=== PATIENT | male | born 1985 | race Caucasian/White ===

== ENCOUNTER 2016-11-25 10:52 | Emergency (ER) | payer OTHER ==
[2016-11-25] MEDS ORDERED: MORPHINE SULFATE 4 MG/ML SYRINGE IV STA (11:39)
[2016-11-25] MEDS ORDERED: SODIUM CHLORIDE 0.9% 1,000 ML IV STA ×2 (11:39)
[2016-11-25] MEDS ORDERED: RX INFO: IV CONTRAST WAS GIVEN 1 EACH MISC MISCELLANE PRN (11:39)
--- NOTE | 2016-11-25 11:55 | ED ---
General Adult HPI - General Chief complaint: Urogenital Stated complaint: hernia Time Seen by Provider: 11/25/16 11:17 Source: patient, RN notes reviewed, old records reviewed Mode of arrival: wheelchair Limitations: no limitations - History of Present Illness Initial comments: This is a 31-year-old male the ER for evaluation. This patient presents for evaluation of possible hernia. Patient is obese with history of umbilical hernia. Patient has no other medical history. Symptoms started 2 days ago progressively worsening, they previously left-sided inguinal area radiating to groin. Patient has had a bowel movement yesterday with no difficulty no straining. No nausea vomiting and no significant abdominal pain. Patient denies any other complaints to fevers, no cough or congestion, no recent illness of diarrhea. - Related Data Home Medications Medication Instructions Recorded Confirmed No Known Home Medications [No 11/25/16 11/25/16 Known Home Medications] Allergies Allergy/AdvReac Type Severity Reaction Status Date / Time Penicillins Allergy Unknown Verified 11/25/16 11:13 Review of Systems ROS Statement: Those systems with pertinent positive or pertinent negative responses have been documented in the HPI. ROS Other: All systems not noted in ROS Statement are negative. Past Medical History Past Medical History: Hypertension History of Any Multi-Drug Resistant Organisms: None Reported Past Surgical History: Hernia Repair, Tonsillectomy Past Psychological History: No Psychological Hx Reported Smoking Status: Never smoker Past Alcohol Use History: None Reported Past Drug Use History: Marijuana General Exam Limitations: no limitations General appearance: alert, in no apparent distress, obese Head exam: Present: atraumatic, normocephalic, normal inspection Eye exam: Present: normal appearance, PERRL, EOMI. Absent: scleral icterus, conjunctival injection, periorbital swelling ENT exam: Present: normal exam, mucous membranes moist Neck exam: Present: normal inspection. Absent: tenderness, meningismus, lymphadenopathy Respiratory exam: Present: normal lung sounds bilaterally. Absent: respiratory distress, wheezes, rales, rhonchi, stridor Cardiovascular Exam: Present: regular rate, normal rhythm, normal heart sounds. Absent: systolic murmur, diastolic murmur, rubs, gallop, clicks GI/Abdominal exam: Present: soft, normal bowel sounds. Absent: distended, tenderness, guarding, rebound, rigid Extremities exam: Present: normal inspection, full ROM, normal capillary refill. Absent: tenderness, pedal edema, joint swelling, calf tenderness Back exam: Present: normal inspection Neurological exam: Present: alert, oriented X3, CN II-XII intact Psychiatric exam: Present: normal affect, normal mood Skin exam: Present: warm, dry, intact, normal color. Absent: rash Course Vital Signs 11/25/16 11:11 Temperature 97.8 F Pulse Rate 92 Respiratory 20 Rate Blood Pressure 147/82 O2 Sat by Pulse 98 Oximetry - Reevaluation(s) Reevaluation #1: 11/25/16 13:19 Is able to tolerate oral intake at this time, we'll prescribe antibiotics 3 medication and antiemetics Medical Decision Making - Medical Decision Making 28 female the ER with uncommon. Acute diverticulitis, patient will be given follow-up with Gen. surgery GI, dietary changes a modification, pain control antibiotics at this time - Lab Data Result diagrams: 11/25/16 11:45 11/25/16 11:45 Lab Results 11/25/16 11/25/16 11/25/16 Range/Units 11:45 11:45 11:45 WBC 8.6 (3.8-10.6) k/uL RBC 4.77 (4.30-5.90) m/uL Hgb 13.9 (13.0-17.5) gm/dL Hct 42.8 (39.0-53.0) % MCV 89.7 (80.0-100.0) fL MCH 29.2 (25.0-35.0) pg MCHC 32.5 (31.0-37.0) g/dL RDW 14.1 (11.5-15.5) % Plt Count 255 (150-450) k/uL Neutrophils % 60 % Lymphocytes % 32 % Monocytes % 4 % Eosinophils % 2 % Basophils % 0 % Neutrophils # 5.2 (1.3-7.7) k/uL Lymphocytes # 2.7 (1.0-4.8) k/uL Monocytes # 0.4 (0-1.0) k/uL Eosinophils # 0.2 (0-0.7) k/uL Basophils # 0.0 (0-0.2) k/uL Sodium 142 (137-145) mmol/L Potassium 4.5 (3.5-5.1) mmol/L Chloride 103 (98-107) mmol/L Carbon Dioxide 28 (22-30) mmol/L Anion Gap 11 mmol/L BUN 11 (9-20) mg/dL Creatinine 0.91 (0.66-1.25) mg/dL Est GFR (MDRD) Af Amer >60 (>60 ml/min/1.73 sqM) Est GFR (MDRD) Non-Af >60 (>60 ml/min/1.73 sqM) Glucose 120 H (74-99) mg/dL Calcium 9.4 (8.4-10.2) mg/dL Total Bilirubin 0.6 (0.2-1.3) mg/dL AST 35 (17-59) U/L ALT 39 (21-72) U/L Alkaline Phosphatase 72 (38-126) U/L Total Protein 8.2 (6.3-8.2) g/dL Albumin 4.3 (3.5-5.0) g/dL Amylase 52 (30-110) U/L Lipase 70 (23-300) U/L Urine Color Yellow Urine Appearance Clear (Clear) Urine pH 5.0 (5.0-8.0) Ur Specific [place] 1.015 (1.001-1.035) Urine Protein Negative (Negative) Urine Glucose (UA) Negative (Negative) Urine Ketones Negative (Negative) Urine Blood Negative (Negative) Urine Nitrate Negative (Negative) Urine Bilirubin Negative (Negative) Urine Urobilinogen <2.0 (<2.0) mg/dL Ur Leukocyte Esterase Negative (Negative) - Radiology Data Radiology results: report reviewed (CT abdomen and pelvis positive for diverticulitis), image reviewed Disposition Clinical Impression: Acute diverticulitis Disposition: HOME SELF-CARE Condition: Good Instructions: Diverticulitis (ED) Referrals: Kasey Coughlin MD [Primary Care Provider] - 1-2 days
[2016-11-25 12:05] LABS: Appearance,Urine Clear (Clear); Bilirubin,Urine Negative (Negative); Glucose,Urine (UA) Negative (Negative); Ketones,Urine Negative (Negative); Leukocyte Esterase,Urine Negative (Negative); Nitrite,Urine Negative (Negative); Protein,Urine Negative (Negative); Specific Gravity,Urine 1.015 (1.001-1.035); UA Billing (MACRO vs. MICRO) CHEM; Urobilinogen,Urine <2.0 mg/dL (<2.0)
[2016-11-25 12:07] LABS: Basophils % (A) 0 %; CH 29.8; CHCM 33.4; Eosinophils # (A) 0.2 k/uL (0-0.7); Eosinophils % (A) 2 %; HCT 42.8 % (39.0-53.0); HDW 2.78; HGB 13.9 gm/dL (13.0-17.5); Luc # (Auto) 0.13; Luc % (Auto) 2; Lymphocytes # (A) 2.7 k/uL (1.0-4.8); Lymphocytes % (A) 32 %; MCH 29.2 pg (25.0-35.0); MCHC 32.5 g/dL (31.0-37.0); MCV 89.7 fL (80.0-100.0); Mean Platelet Volume 7.2; Monocytes # (A) 0.4 k/uL (0-1.0); Monocytes % (A) 4 %; Neutrophils # (A) 5.2 k/uL (1.3-7.7); Neutrophils % (A) 60 %; RBC 4.77 m/uL (4.30-5.90); RDW 14.1 % (11.5-15.5); WBC 8.6 k/uL (3.8-10.6); WBC (Perox) 8.69
[2016-11-25 12:13] LABS: ALT 39 U/L (21-72); AST 35 U/L (17-59); Alkaline Phosphatase 72 U/L (38-126); Amylase 52 U/L (30-110); Anion Gap 11 mmol/L; Blood Urea Nitrogen 11 mg/dL (9-20); Calcium 9.4 mg/dL (8.4-10.2); Carbon Dioxide 28 mmol/L (22-30); Chloride 103 mmol/L (98-107); Glucose 120 mg/dL (74-99); Non-African American GFR(MDRD) >60 (>60 ml/min/1.73 sqM); Potassium 4.5 mmol/L (3.5-5.1); Sodium 142 mmol/L (137-145); Total Bilirubin 0.6 mg/dL (0.2-1.3); Total Protein 8.2 g/dL (6.3-8.2)
--- NOTE | 2016-11-25 12:58 | CT ---
EXAMINATION TYPE: CT abdomen pelvis w con DATE OF EXAM: 11/25/2016 12:51 PM COMPARISON: 07/27/2013 HISTORY: Patient complains of LLQ pain with history of prior hernia repair. CT DLP: 2767 mGycm CONTRAST: CT scan of the abdomen and pelvis is performed without Oral Contrast and with IV Contrast, patient in jected with 100 mL of Omnipaque 300. FINDINGS: LUNG BASES-: No visible nodule. No infiltrate. LIVER/GB: No calcified gallstones. No space occupying hepatic lesion. Biliary tree is of normal ca liber. There is evidence of hepatic steatosis. PANCREAS: No inflammation. No distinct mass. SPLEEN: No splenic enlargement. No lesion seen. ADRENALS: No nodule. No thickening. KIDNEYS/BLADDER: No hydronephrosis. No nephrolithiasis. No disctinct renal mass. Urinary bladder g rossly unremarkable. BOWEL: There is mild inflammatory change adjacent to the sigmoid colon which may reflect mild diverti culitis. No evidence of perforation or abscess. Small bowel is of normal caliber. Normal appendix. Po stsurgical changes of the ventral hernia repair. No evidence for hernia recurrence. GENITAL ORGANS: No gross abnormality. LYMPH NODES: No greater than 1cm abdominal or pelvic lymph nodes are appreciated. AORTA: No significant abnormality. OSSEOUS STRUCTURES: No significant abnormality is seen. OTHER: No significant additional abnormality is seen. IMPRESSION: 1. Findings felt to reflect mild uncomplicated sigmoid diverticulitis.
[2016-11-25] MEDS ORDERED: metroNIDAZOLE 500 MG TAB PO STA (13:19)
[2016-11-25] MEDS ORDERED: CIPROFLOXACIN HCL 500 MG TAB PO STA (13:19)
[2016-11-25 13:39] VITALS: BP 149/75; PULSE 85; RESP 16; TEMP 97
== END 2016-11-25 13:39 | disposition home or self-care (01) ==
LOC: EC 10:52
DX: K57.92 Diverticulitis of intestine, part unspecified, without perforation or abscess without bleeding (principal); E66.9 Obesity, unspecified; Z88.0 Allergy status to penicillin; Z87.19 Personal history of other diseases of the digestive system; Z98.890 Other specified postprocedural states
CPT/HCPCS: 36415; 80053; 82150; 83690; 85025; 81003; 87086; 74177; 99284; 96374; 96361; J2270; Q9967

== ENCOUNTER 2017-03-11 11:13 | Emergency (ER) | payer OTHER ==
[2017-03-11 11:31] VITALS: RESP 18
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
[2017-03-11] MEDS: CYCLOBENZAPRINE 10 MG TAB PO STA (13:13)
[2017-03-11] MEDS: HYDROcodone/APAP 5-325MG 1 EACH TAB PO STA (13:13)
--- NOTE | 2017-03-11 13:52 | XR ---
EXAMINATION TYPE: XR lumbosacral spine min 4V DATE OF EXAM: 03/11/2017 CLINICAL HISTORY: Low back pain TECHNIQUE: Frontal, lateral, and oblique images of the lumbar spine are obtained. COMPARISON: Lumbar spine x-ray December 24, 2013. CT abdomen pelvis November 25, 2016. FINDINGS: There are 5 lumbar type vertebral bodies identified. The lumbar spine shows satisfactory alignment without evidence of acute fracture or dislocation. Vertebral body heights and disk space he ights are within normal limits. The oblique images appear within normal limits. Coils from ventral wall hernia repair surgery are redemonstrated in the overlying soft tissue. IMPRESSION: No acute fracture or dislocation is seen in the lumbar spine. No significant change from prior studies.
[2017-03-11 13:55] VITALS: BP 125/85; PULSE 73; TEMP 97.8
== END 2017-03-11 13:59 | disposition home or self-care (01) ==
LOC: EC 11:13
DX: S39.012A Strain of muscle, fascia and tendon of lower back, initial encounter (principal); Z88.0 Allergy status to penicillin; X50.9XXA Other and unspecified overexertion or strenuous movements or postures, initial encounter; Y93.64 Activity, baseball
CPT/HCPCS: 72110; 99283

== ENCOUNTER 2017-12-04 13:35 | Observation (INO) | payer OTHER ==
[2017-12-04] MEDS ORDERED: SODIUM CHLORIDE 0.9% 1,000 ML IV STA (14:41)
[2017-12-04] MEDS ORDERED: IBUPROFEN 600 MG TAB PO STA (14:42)
[2017-12-04] MEDS ORDERED: ACETAMINOPHEN TAB 500 MG TAB PO STA (14:42)
[2017-12-04] MEDS ORDERED: IPRATROPIUM-ALBUTEROL 3 ML NEB INHALATION STA (14:43)
--- NOTE | 2017-12-04 14:47 | ED ---
Chest Pain HPI <Ramses Paz - Last Filed: 12/04/17 17:41> - General Source: patient, RN notes reviewed, old records reviewed Mode of arrival: ambulatory Limitations: no limitations <Dulce Vickers - Last Filed: 12/04/17 18:40> - General Chief Complaint: Chest Pain Stated Complaint: CHEST PAIN Time Seen by Provider: 12/04/17 14:08 - History of Present Illness Initial Comments: This patient is a pleasant 32 old male with chief complaint of cough, fever or congestion and chest pain for approximately one day. Patient reports that he was feeling fine yesterday. He did not receive the influenza vaccine. He states that his family has all had the flu earlier this year. Patient reports that he's had a productive cough this morning. He states he feels like his heart is pounding out of his chest. He states that he has no significant cardiac history of himself, no history of lung diseases. He reports that he smokes marijuana occasionally. reports the chest pain has been intermittent, he reports is worse with ambulation. He states it occurred to be worse when he was at the store earlier today. (Dulce Vickers) - Related Data Home Medications Medication Instructions Recorded Confirmed No Known Home Medications [No 12/04/17 12/04/17 Known Home Medications] Allergies Allergy/AdvReac Type Severity Reaction Status Date / Time Penicillins Allergy Rash/Hives Verified 12/04/17 14:13 Review of Systems ROS Other: All systems not noted in ROS Statement are negative. <Ramses Paz - Last Filed: 12/04/17 17:41> ROS Other: All systems not noted in ROS Statement are negative. <Dulce Vickers - Last Filed: 12/04/17 18:40> ROS Statement: Those systems with pertinent positive or pertinent negative responses have been documented in the HPI. EKG Findings - EKG Comments: EKG Findings:: EKG shows sinus tachycardia otherwise a normal EKG noted. Ventricular rate of 110 bpm. AL interval 144 ms. QRS ration 110 ms. QT QTc is 350/473 ms. <Dulce Vickers - Last Filed: 12/04/17 18:40> Past Medical History Past Medical History: Hypertension History of Any Multi-Drug Resistant Organisms: None Reported Past Surgical History: Hernia Repair, Tonsillectomy Past Psychological History: No Psychological Hx Reported Smoking Status: Never smoker Past Alcohol Use History: None Reported Past Drug Use History: Marijuana <Dulce Vickers - Last Filed: 12/04/17 18:40> General Exam <Ramses Paz - Last Filed: 12/04/17 17:41> Limitations: no limitations General appearance: alert, in no apparent distress Head exam: Present: atraumatic, normocephalic, normal inspection Eye exam: Present: normal appearance, PERRL, EOMI. Absent: scleral icterus, conjunctival injection, periorbital swelling ENT exam: Present: normal exam, mucous membranes moist Neck exam: Present: normal inspection. Absent: tenderness, meningismus, lymphadenopathy Respiratory exam: Present: normal lung sounds bilaterally, wheezes (Patient is a minor cough and some minor wheezing noted at the right lower lung base.). Absent: respiratory distress, rales, rhonchi, stridor Cardiovascular Exam: Present: regular rate, normal rhythm, normal heart sounds. Absent: systolic murmur, diastolic murmur, rubs, gallop, clicks GI/Abdominal exam: Present: soft, normal bowel sounds. Absent: distended, tenderness, guarding, rebound, rigid Extremities exam: Present: normal inspection, full ROM, normal capillary refill. Absent: tenderness, pedal edema, joint swelling, calf tenderness Back exam: Present: normal inspection Neurological exam: Present: alert, oriented X3, CN II-XII intact Psychiatric exam: Present: normal affect, normal mood Skin exam: Present: warm, dry, intact, normal color. Absent: rash <Dulce Vickers - Last Filed: 12/04/17 18:40> - General Exam Comments Initial Comments: This is a 32-year-old male. No acute distress. (Dulce Vickers) Vital Signs 12/04/17 12/04/17 12/04/17 13:41 14:27 14:58 Temperature 99.0 F 98.7 F Pulse Rate 108 H 102 H 100 Respiratory 20 18 Rate Blood Pressure 145/88 160/77 O2 Sat by Pulse 98 98 Oximetry 12/04/17 12/04/17 12/04/17 15:12 15:56 16:44 Temperature Pulse Rate 100 95 88 Respiratory 18 18 Rate Blood Pressure 147/73 151/72 O2 Sat by Pulse 98 99 Oximetry Chest Pain MDM <Ramses Paz - Last Filed: 12/04/17 17:41> <Dulce Vickers - Last Filed: 12/04/17 18:40> - [facility] Medical decision making; 32-year-old male was coming emergency room visit short sharp episodes of chest pain. Around emergency room he was febrile. Pain was not reproducible noted radiate anywhere. No nausea no vomiting. No injuries. EKG found ventricular rate to be [address] elevation or ischemic changes appreciated. Patient does smoke, there is a very strong family history of heart disease in family members in their 30s. The patient's chest x-ray shows evidence of an enlarged heart but no failure. Influenza negative. Labs at this time within normal limits. Patient will be admitted for observation for chest pain. I explained to the family and patient at bedside answer all questions. I spoke with on-call hospitalist Dr. Perez. Patient be admitted to his service with cardiology consultation Dr. Paz (Ramses Paz) This patient 32-year-old male presents emergency Department treatment plans of intermittent chest pain. He did have a low-grade temperature when he first came in. Use heart rate was 110 and EKG. No nausea or vomiting. He did have some diaphoresis. Patient was given a breathing treatment, Motrin Tylenol and fluids. He reports he feels somewhat better. However he does report he has a family history of heart disease. At this time I'll put the patient in observation for chest pain, repeat troponins. I will put the patient on azithromycin and given the first dose the emergency department for the cough, or bronchitis possible walking pneumonia. Also repeat breathing treatments as well. Patient understands treatment plan. Agrees to admission. (Dulce Vickers) Disposition <Ramses Paz - Last Filed: 12/04/17 17:41> Time of Disposition: 18:18 <Dulce Vickers - Last Filed: 12/04/17 18:40> Clinical Impression: Chest pain, Cough Disposition: ADMITTED IP TO THIS HOSP Condition: Stable Instructions: Chest Pain (ED) Referrals: Kasey Coughlin MD [Primary Care Provider] - 1-2 days
[2017-12-04] MEDS: SODIUM CHLORIDE 0.9% 1,000 ML IV SCH (15:02)
[2017-12-04 15:12] LABS: Appearance,Urine Clear (Clear); Basophils % (A) 0 %; Bilirubin,Urine Negative (Negative); Blood,Urine Negative (Negative); Color,Urine Yellow; Eosinophils % (A) 1 %; Glucose,Urine (UA) Negative (Negative); HCT 41.7 % (39.0-53.0); HGB 14.9 gm/dL (13.0-17.5); Ketones,Urine Negative (Negative); Leukocyte Esterase,Urine Negative (Negative); Lymphocytes # (A) 0.9 k/uL (1.0-4.8); Lymphocytes % (A) 10 %; MCH 31.4 pg (25.0-35.0); MCHC 35.7 g/dL (31.0-37.0); MCV 87.8 fL (80.0-100.0); Mean Platelet Volume 7.8; Monocytes # (A) 0.3 k/uL (0-1.0); Monocytes % (A) 3 %; Neutrophils % (A) 85 %; Nitrite,Urine Negative (Negative); Platelet Count 212 k/uL (150-450); Protein,Urine Negative (Negative); RBC 4.76 m/uL (4.30-5.90); RDW 13.5 % (11.5-15.5); Specific Gravity,Urine 1.019 (1.001-1.035); WBC 8.3 k/uL (3.8-10.6)
[2017-12-04 15:23] LABS: ALT 21 U/L (21-72); AST 19 U/L (17-59); Albumin 4.3 g/dL (3.5-5.0); Alkaline Phosphatase 64 U/L (38-126); Anion Gap 12 mmol/L; Blood Urea Nitrogen 14 mg/dL (9-20); Calcium 9.6 mg/dL (8.4-10.2); Carbon Dioxide 25 mmol/L (22-30); Chloride 102 mmol/L (98-107); Glucose 96 mg/dL (74-99); Magnesium 1.8 mg/dL (1.6-2.3); Potassium 4.4 mmol/L (3.5-5.1); Sodium 139 mmol/L (137-145); Total Bilirubin 0.5 mg/dL (0.2-1.3); Total Protein 7.5 g/dL (6.3-8.2)
[2017-12-04 15:25] LABS: D-Dimer 0.49 mg/L FEU (<0.60); Partial Thromboplastin Time 24.7 sec (22.0-30.0); Prothrombin Time 10.1 sec (9.0-12.0)
[2017-12-04 15:30] LABS: Creatine Kinase 84 U/L (55-170)
--- NOTE | 2017-12-04 15:34 | XR ---
EXAMINATION TYPE: XR chest 2V DATE OF EXAM: 12/04/2017 COMPARISON: Chest x-ray November 07, 2014. HISTORY: Chest pain. TECHNIQUE: Frontal and lateral views of the chest are obtained. FINDINGS: There is no focal air space opacity, pleural effusion, or pneumothorax seen. The cardiac silhouette size is enlarged. The osseous structures are intact. IMPRESSION: Cardiomegaly without acute pulmonary process.
[2017-12-04 15:43] LABS: Creatine Kinase MB 0.4 ng/mL (0.0-2.4); Troponin I <0.012 ng/mL (0.000-0.034)
[2017-12-04] MEDS ORDERED: AZITHROMYCIN 500 MG TAB PO STA (18:19)
[2017-12-04] MEDS ORDERED: NITROGLYCERIN SL TABS 0.4 MG TAB SUBLINGUAL PRN (18:19)
[2017-12-04] MEDS ORDERED: ASPIRIN 81 MG PO STA (18:19)
[2017-12-04 22:18] LABS: Creatine Kinase 74 U/L (55-170)
[2017-12-04 22:28] LABS: Creatine Kinase MB 0.3 ng/mL (0.0-2.4); Troponin I <0.012 ng/mL (0.000-0.034)
[2017-12-05 04:09] LABS: Creatine Kinase 72 U/L (55-170)
[2017-12-05 04:24] LABS: Creatine Kinase MB 0.3 ng/mL (0.0-2.4); Troponin I <0.012 ng/mL (0.000-0.034)
[2017-12-05] MEDS: SODIUM CHLORIDE 0.9% 1,000 ML IV SCH (04:47)
[2017-12-05 08:19] LABS: Cholesterol 137 mg/dL (<200); HDL Cholesterol 24 mg/dL (40-60); LDL Cholesterol,Calculated 60 mg/dL (0-99); Triglycerides 266 mg/dL (<150)
[2017-12-05 08:52] VITALS: RESP 18
[2017-12-05] MEDS: IPRATROPIUM-ALBUTEROL 3 ML NEB INHALATION SCH ×5 (09:25→16:23)
[2017-12-05 12:20] VITALS: PULSE 79; TEMP 97.6
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
[2017-12-05] MEDS ORDERED: LOSARTAN 25 MG TAB PO SCH (12:30)
[2017-12-05 16:14] VITALS: BP 154/90
--- NOTE | 2017-12-05 17:41 | HP ---
HISTORY AND PHYSICAL DATE OF SERVICE: 12/05/17. CHIEF COMPLAINT: Chest pain. BRIEF HISTORY: This patient, a 32-year-old morbidly obese male patient with history of hypertension and sleep apnea. He uses marijuana daily, presents to ED with a complaint of chest pain which started yesterday morning in left precordial area without any radiation. The patient claims that he was sitting when the pain started. Initially the pain was sharp and would go away in 30 seconds on its own, but later it stayed for longer period of time. He had no nausea, vomiting or diaphoresis. Along with the chest pain he does give history of cough productive of yellow-green phlegm. According to patient, the pain was getting progressively worse so he decided to come to the ED. PAST MEDICAL HISTORY: The patient has past medical history that is significant for history of hypertension, history of sleep apnea. Patient uses CPAP at home. PAST SURGICAL HISTORY: 1. Significant for hernia repair. 2. Tonsillectomy. SOCIAL HISTORY: Patient has no history of smoking tobacco, but does use marijuana daily. No IV drug abuse or alcohol abuse. FAMILY HISTORY: Significant for CHF in mother. MEDICATIONS: The patient is not taking any medications on a regular basis. ALLERGIES: He is ALLERGIC to PENICILLIN. REVIEW OF SYSTEM: CONSTITUTIONAL: History of fever and chills. HEENT: No history of hearing or vision loss. RESPIRATORY: Some cough with sputum production. CARDIOVASCULAR: Chest pain as described above. ABDOMEN/GI: No nausea, vomiting, diarrhea. GENITOURINARY: No hematuria. No dysuria. MUSCULOSKELETAL/EXTREMITIES: No joint or muscle deformities. NEUROLOGICAL No dizziness or lightheadedness. No focal deficit. SKIN: No pigmentation or rashes. ENDOCRINE: No polyuria or polydipsia. The rest of 14-point review of system is unremarkable. PHYSICAL EXAMINATION: VITAL SIGNS: Temperature of 98.1, pulse 100, respiration 18, blood pressure 167/93, O2 saturation 97%. HEENT: Atraumatic, normocephalic. Pupils equal and reactive to light. Extraocular movements are intact. Buccal mucosa is fair. NECK: Supple. No goiter or lymphadenopathy. JVD is negative. No carotid bruit heard. LUNGS: Scattered coarse rhonchi with occasional wheezing. Fair air entry. Heart is regular rate and rhythm without any murmurs or gallop rhythm. ABDOMEN: Soft, nontender, nondistended. Bowel sounds positive. EXTREMITIES: No edema, clubbing or cyanosis. Pulses are palpable 2+. NEUROLOGICAL EXAMINATION: Patient is awake, alert, oriented x3. He has no gross motor or sensory deficit. Skin is warm and dry without any rashes or pigmentation. LAB: CBC: White blood count of 8.3, hemoglobin 14.9, hematocrit 41.7, platelet count of 212. Chemical profile: Sodium 139, potassium 4.4, chloride 102, bicarb 25, BUN 14, creatinine 0.8, glucose 96. CK of 0.04, troponin 0.012. EKG shows sinus at a sinus rhythm, no acute ST or T-wave changes. Chest x-ray was negative for any acute process. ASSESSMENT: 1. Chest pain rule out acute coronary syndrome. 2. Accelerated hypertension. 3. Severe acute tracheobronchitis. 4. Morbid obesity. 5. Marijuana use. PLAN: We plan to admit the patient to observation on telemetry. Monitor cardiac enzymes. Monitor the EKG. Consult Cardiology. Patient will be started on losartan orally. Plan is to monitor blood pressure closely. Counseling done on marijuana cessation and also counseling done for need to take oral antihypertensive agents. Further recommendations after patient is seen by Cardiology. MMODL / IJN: [id number] /
== END 2017-12-05 16:14 | disposition home or self-care (01) ==
LOC: EC 13:35 → 3OBS 18:37
PROVIDERS: ADMIT Internal Medicine; ATTEND Internal Medicine
DX: R07.89 Other chest pain (principal); J20.9 Acute bronchitis, unspecified; R00.0 Tachycardia, unspecified; I10 Essential (primary) hypertension; E66.01 Morbid (severe) obesity due to excess calories; Z68.41 Body mass index [BMI] 40.0-44.9, adult; R73.03 Prediabetes; F12.90 Cannabis use, unspecified, uncomplicated; G47.30 Sleep apnea, unspecified; Z99.89 Dependence on other enabling machines and devices; Z88.0 Allergy status to penicillin; Z82.49 Family history of ischemic heart disease and other diseases of the circulatory system
CPT/HCPCS: 96361 ×5; 96360 ×2; 99285 ×2; 36415; 94640 ×2; 93005; 85379; 83880; 80061; 80053; 82550 ×2; 82553 ×2; 83735; 84484 ×2; 85025; 85610; 85730; 81003; 87040; 87502; 71046; G0378 ×2

== ENCOUNTER 2018-09-16 09:33 | Emergency (ER) | payer OTHER ==
[2018-09-16 09:40] VITALS: BP 166/99; PULSE 88; RESP 18; TEMP 97.5
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
--- NOTE | 2018-09-16 10:13 | XR ---
EXAMINATION TYPE: XR ribs RT w pa chest xray DATE OF EXAM: 09/16/2018 COMPARISON: NONE HISTORY: Pain TECHNIQUE: Single view of the chest four views of the ribs are submitted. FINDINGS: The lungs are clear. No Evidence for pneumothorax. No evidence for focal contusion. Medi astinal structures are midline. Evaluation of the ribs fails to demonstrate evidence for displaced r ib fracture or secondary sign of rib fracture. IMPRESSION: Negative study
[2018-09-16] MEDS ORDERED: ACET/COD 300 MG/30 MG STARTER PACK 6 TAB BTL PO STA (10:25)
== END 2018-09-16 10:38 | disposition home or self-care (01) ==
LOC: EC 09:33
DX: S20.211A Contusion of right front wall of thorax, initial encounter (principal); Z88.0 Allergy status to penicillin; V89.2XXA Person injured in unspecified motor-vehicle accident, traffic, initial encounter; Y92.410 Unspecified street and highway as the place of occurrence of the external cause
CPT/HCPCS: 99284

== ENCOUNTER → 2018-10-04 | Outpatient (CLI) | payer OTHER ==
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
--- NOTE | 2018-10-04 15:08 | XR ---
Thoracic spine HISTORY: M54.5, M54.6, Z09, V 89.2XXA, trauma and pain 2 views of the thoracic spine on 3 images There is multilevel spondylosis present. Thoracic vertebral bodies show preserved height, alignment, and bone mineralization. Disc spaces are maintained. Thoracic lumbar junction not included on the lat eral view. IMPRESSION: No acute fracture or subluxation.
--- NOTE | 2018-10-04 15:09 | XR ---
Lumbar spine HISTORY: M54.5, M54.6, Z09, V 89.2XXA, trauma and pain Reviews of the lumbar spine correlated to prior exam 03/11/2017 There is no significant interval change. Lumbar vertebral bodies show preserved height, alignment, an d bone mineralization. Disc spaces are remarkable for height loss especially L4-5, L5-S1. Postop sullivan ges noted to the anterior abdominal wall. There is mild multilevel spondylosis. IMPRESSION: No fracture or subluxation. Mild degenerative disc disease. MRI may be of benefit.
== END ==
LOC: RADXRMAIN 14:18
PROVIDERS: ATTEND Family Medicine
DX: M51.36 Other intervertebral disc degeneration, lumbar region (principal); M54.6 Pain in thoracic spine
CPT/HCPCS: 72070; 72100

== ENCOUNTER 2018-10-09 04:35 | Emergency (ER) | payer OTHER ==
[2018-10-09 04:44] VITALS: RESP 18
[2018-10-09] MEDS ORDERED: HYDROcodone/APAP 7.5-325MG 1 EACH TAB PO ONE (05:00)
--- NOTE | 2018-10-09 05:24 | XR ---
EXAMINATION TYPE: XR Hip Complete LT DATE OF EXAM: 10/09/2018 COMPARISON: NONE HISTORY: Left hip pain TECHNIQUE: 2 views FINDINGS: I see no fracture nor dislocation. Hip joint space is normal. There is no sign of hip dyspl joseph. IMPRESSION: Normal left hip exam.
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
[2018-10-09] MEDS ORDERED: MORPHINE SULFATE 4 MG/ML SYRINGE IM STA (06:02)
[2018-10-09 06:35] VITALS: BP 140/83; PULSE 88; TEMP 97
== END 2018-10-09 06:35 | disposition home or self-care (01) ==
LOC: EC 04:35
DX: M25.552 Pain in left hip (principal); G47.30 Sleep apnea, unspecified; Z99.89 Dependence on other enabling machines and devices; Z88.0 Allergy status to penicillin
CPT/HCPCS: 73502; 99283; 96372; J2270

== ENCOUNTER → 2018-10-25 | Outpatient (CLI) | payer OTHER ==
--- NOTE | 2018-10-25 14:51 | NM ---
EXAMINATION TYPE: NM bone scan whole body DATE OF EXAM: 10/25/2018 COMPARISON: NONE HISTORY: Middle back pain Delayed whole-body scanning was performed following the injection of 23.8 mCi Tc 99m MDP. Images acq uired 3 hours post injection. FINDINGS: Faint uptake seen in the thoracic spine. Abnormal uptake involving the feet, knees and shoulders may be post arthritic. IMPRESSION: Faint uptake noted in the midthoracic spine likely degenerative. If symptoms persist correlate with M RI to assess for disc herniation.
== END | disposition home or self-care (01) ==
LOC: RADNMMAIN 10:41
PROVIDERS: ATTEND Family Medicine
DX: R07.81 Pleurodynia (principal)
CPT/HCPCS: 78306; A9503

== ENCOUNTER → 2018-10-28 | Outpatient (CLI) | payer OTHER ==
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
== END | disposition home or self-care (01) ==
LOC: RADMRIMAIN 11:34
PROVIDERS: ATTEND Family Medicine
DX: M51.24 Other intervertebral disc displacement, thoracic region (principal); M47.816 Spondylosis without myelopathy or radiculopathy, lumbar region
CPT/HCPCS: 72146; 72148

== ENCOUNTER 2019-07-31 15:34 | Emergency (ER) | payer OTHER ==
[2019-07-31 15:58] VITALS: BP 139/85; PULSE 93; RESP 18; TEMP 97.9
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
--- NOTE | 2019-07-31 16:22 | XR ---
EXAMINATION TYPE: XR shoulder complete LT DATE OF EXAM: 07/31/2019 COMPARISON: NONE HISTORY: 34-year-old male with left shoulder pain TECHNIQUE: 3 views FINDINGS: Moderate degenerative spurring at the AC joint. Some chronic bony fragmentation versus loose body sup eriorly and mild capsular hypertrophy. Subacromial space is preserved. No tendinous or bursal calcifi cations. No acute fracture, subluxation, or dislocation. 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 No acute osseous abnormality seen.
[2019-07-31] MEDS ORDERED: KETOROLAC 60 MG/2 ML VIAL IM STA (16:39)
[2019-07-31] MEDS ORDERED: CYCLOBENZAPRINE 10MG STARTER 3 TAB BTL PO STA (16:39)
== END 2019-07-31 16:59 | disposition home or self-care (01) ==
LOC: EC 15:34
DX: S46.912A Strain of unspecified muscle, fascia and tendon at shoulder and upper arm level, left arm, initial encounter (principal); I10 Essential (primary) hypertension; Z88.0 Allergy status to penicillin; X58.XXXA Exposure to other specified factors, initial encounter
CPT/HCPCS: 73030; 99284; 96372; J1885

== ENCOUNTER 2020-03-04 19:02 | Emergency (ER) | payer OTHER ==
[2020-03-04 19:16] VITALS: BP 162/90; PULSE 101; RESP 18; TEMP 98.3
[2020-03-04] MEDS ORDERED: KETOROLAC 30 MG/ML 1 ML VIAL IM STA (19:52)
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
== END 2020-03-04 20:30 | disposition home or self-care (01) ==
LOC: EC 19:02
DX: B35.3 Tinea pedis (principal); G47.30 Sleep apnea, unspecified; Z99.89 Dependence on other enabling machines and devices; Z88.0 Allergy status to penicillin
CPT/HCPCS: 99282; 96372; J1885

== ENCOUNTER 2020-03-11 11:21 | Emergency (ER) | payer OTHER ==
[2020-03-11 11:27] VITALS: PULSE 95; RESP 18; TEMP 97.7
[2020-03-11] MEDS ORDERED: amLODIPine 5 MG TAB PO STA (11:30)
[2020-03-11] MEDS ORDERED: diphenhydrAMINE 50 MG CAP PO STA (11:51)
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
[2020-03-11 12:13] VITALS: BP 162/87
== END 2020-03-11 12:13 | disposition home or self-care (01) ==
LOC: EC 11:21
DX: R21 Rash and other nonspecific skin eruption (principal); I10 Essential (primary) hypertension; G47.30 Sleep apnea, unspecified; Z88.0 Allergy status to penicillin; Z99.89 Dependence on other enabling machines and devices
CPT/HCPCS: 99282

== ENCOUNTER 2020-03-13 14:08 | Observation (INO) | payer OTHER ==
[2020-03-13] MEDS ORDERED: CYCLOBENZAPRINE 10 MG TAB PO PRN (15:25)
[2020-03-13] MEDS ORDERED: VANCOMYCIN IV PER PHARMACY 1 EACH MISC MISCELLANE PRN (15:42)
[2020-03-13 15:50] LABS: Basophils % (A) 0 %; Eosinophils # (A) 0.2 k/uL (0-0.7); Eosinophils % (A) 2 %; HCT 41.4 % (39.0-53.0); HGB 13.8 gm/dL (13.0-17.5); Lymphocytes # (A) 2.1 k/uL (1.0-4.8); Lymphocytes % (A) 22 %; MCH 31.4 pg (25.0-35.0); MCHC 33.3 g/dL (31.0-37.0); MCV 94.3 fL (80.0-100.0); Monocytes # (A) 0.2 k/uL (0-1.0); Monocytes % (A) 3 %; Neutrophils # (A) 6.8 k/uL (1.3-7.7); Neutrophils % (A) 72 %; Platelet Count 261 k/uL (150-450); RBC 4.39 m/uL (4.30-5.90); RDW 14.2 % (11.5-15.5); WBC 9.4 k/uL (3.8-10.6)
[2020-03-13 15:58] LABS: African American GFR (CKD) >90 (>60 ml/min/1.73 sqM); Anion Gap 10 mmol/L; Blood Urea Nitrogen 13 mg/dL (9-20); Calcium 9.7 mg/dL (8.4-10.2); Carbon Dioxide 25 mmol/L (22-30); Chloride 103 mmol/L (98-107); Glucose 138 mg/dL (74-99); Non-African American GFR(CKD) >90 (>60 ml/min/1.73 sqM); Potassium 4.1 mmol/L (3.5-5.1); Sodium 138 mmol/L (137-145)
[2020-03-13] MEDS ORDERED: VANCOMYCIN 2,250 MG in SODIUM CHLORIDE 0.9% 500 ML 500 ML IVPB ONE (16:00)
[2020-03-13] MEDS: SODIUM CHLORIDE 0.9% 1,000 ML IV SCH (16:33)
[2020-03-13] MEDS: amLODIPine 2.5 MG TAB PO SCH (16:34)
[2020-03-13 17:00] LABS: AST 25 U/L (17-59)
[2020-03-13 17:16] LABS: ALT 27 U/L (4-49)
[2020-03-13] MEDS: CLOTRIMAZOLE 1% CREAM 15 GM TUBE TOPICAL SCH (21:00)
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
--- NOTE | 2020-03-14 00:09 | CONS ---
CONSULTATION DATE OF SERVICE: 03/13/2020 REASON FOR CONSULTATION: Rash and cellulitis to his feet. HISTORY OF PRESENT ILLNESS: The patient is a 34-year-old male who has been admitted direct to hospital from his PCP with concern for a cellulitis to his foot and some swelling to bilateral hand. The patient mentioned that he started having rash on the left foot mostly lateral border in between the toes for which the patient has been evaluated in the outpatient setting in the Urgent Care as well as in the ER. The patient has been diagnosed with a possible fungal infection and has been treated with oral antifungals as well as local cream. However, the patient is not sure about the name. Subsequently the patient developing a rash on the palms of both hand. The patient denies having any rash in any other part of the body. Patient complaining of itching and some burning pain associated with the rash mostly in the foot area. The patient denies having any fever or any chills. The patient denies having any recent travel or tick bites and denies having any urethral drainage or genital ulcer, though the patient does have multiple sexual partners. The patient was evaluated in the ER on the 11 of March when the patient had been diagnosed with suspected scabies and the patient has been treated with Elimite lotion without any improvement and now has been admitted directly to the hospital by the PCP for further management. The patient has been started on clotrimazole cream and vancomycin. Infectious Disease was consulted for further management of antibiotic and local cream. REVIEW OF SYSTEMS: Positive points have been mentioned in HPI. Rest of systems is negative. PAST MEDICAL HISTORY: Past medical history is significant for hypertension, sleep apnea. PAST SURGICAL HISTORY: Hernia repair and tonsillectomy. SOCIAL HISTORY: No history of smoking or marijuana use. FAMILY HISTORY: Mother with history of congestive heart failure. ALLERGIES: Allergies to PENICILLIN with a rash. No history of anaphylaxis. MEDICATION: Medications include the patient is currently on [place], Norvasc, Lotrimin, Flexeril, and vancomycin. PHYSICAL EXAMINATION: Blood pressure 158/77 with a pulse of 94, temperature 98.1. He is 97% on room air. General description is a young male up in the bed in no distress. No tachypnea or accessory muscle of respiration use. HEENT: Examination shows no pallor or scleral icterus. Oral mucous membrane is dry. No pharyngeal erythema or thrush. NECK: Trachea central. No thyromegaly. LUNGS: Unlabored breathing, clear to auscultation anteriorly. No wheeze or crackle. HEART: S1, S2. Regular rate and rhythm. ABDOMEN: Soft, no tenderness. No guarding or rigidity. EXTREMITIES: Left foot lateral border did have a dry irritating rash with evidence of athlete's foot in between the toes. On the palms of his hand, the patient did have a maculopapular rash. No vesicles and no rash in any other part of the body. NEUROLOGICAL: Patient is awake, alert, oriented x3. Mood and affect normal. LABS: Hemoglobin 13.8, white count 9.4, BUN of 13, creatinine 1.0. Electrolytes have been normal. Liver enzymes are normal. DIAGNOSTIC IMPRESSION AND PLAN: 1. Patient with rash to the foot which is more of a cutaneous candidiasis type with no significant evidence of secondary cellulitis. 2. The patient with maculopapular rash on hands in this patient who did have promiscuous sexual behavior with concern for possible syphilis versus other diseases clinically no features of a cutaneous candidiasis. PLAN: 1. Will wait for the syphilis, HIV testing that has been ordered by the admitting physician. 2. Clotrimazole lotion to the rash on the left foot lateral border. 3. Continue with systemic vancomycin while waiting for the culture to finalize. 4. We will follow on clinical condition and recent investigation to further adjust medication if needed. Thank you for this consultation. Will follow this patient along with you. MMODL / IJN: [id number] /
[2020-03-14 04:02] LABS: Hemoglobin A1C 5.8 % (4.0-6.0)
[2020-03-14] MEDS: SODIUM CHLORIDE 0.9% 1,000 ML IV SCH (04:31)
[2020-03-14] MEDS: VANCOMYCIN 2,250 MG in SODIUM CHLORIDE 0.9% 500 ML 500 ML IVPB SCH ×2 (05:25→16:56)
[2020-03-14] MEDS: amLODIPine 2.5 MG TAB PO SCH ×3 (05:25→20:15)
[2020-03-14 05:31] LABS: Hepatitis A Antibody IgM Non-Reactive (Non-Reactive); Hepatitis B Core IgM Non-Reactive (Non-Reactive); Hepatitis B Surface Antigen Non-Reactive (Non-Reactive); Hepatitis C IgG Antibody Non-Reactive (Non-Reactive)
[2020-03-14 07:34] LABS: HIV 2 AB Non-Reactive (Non-Reactive); HIV AB P24 Non-Reactive (Non-Reactive); HIV P24 AG Non-Reactive (Non-Reactive)
[2020-03-14] MEDS: HYDROcodone/APAP 5-325MG 1 EACH TAB PO PRN ×2 (08:10→20:15)
[2020-03-14] MEDS: CLOTRIMAZOLE 1% CREAM 15 GM TUBE TOPICAL SCH ×2 (08:11→20:16)
[2020-03-14 16:01] LABS: Appearance,Urine Clear (Clear); Bilirubin,Urine Negative (Negative); Blood,Urine Negative (Negative); Color,Urine Light Yellow; Glucose,Urine (UA) Negative (Negative); Ketones,Urine Negative (Negative); Leukocyte Esterase,Urine Negative (Negative); Nitrite,Urine Negative (Negative); PH, Urine 5.5 (5.0-8.0); Protein,Urine Negative (Negative); Specific Gravity,Urine 1.009 (1.001-1.035); Urobilinogen,Urine <2.0 mg/dL (<2.0)
[2020-03-14] MEDS: TERBINAFINE 250 MG TAB PO SCH (23:30)
[2020-03-14] MEDS: DOXYCYCLINE 100 MG CAP PO SCH (23:30)
--- NOTE | 2020-03-15 00:05 | PN ---
PROGRESS NOTE DATE OF SERVICE: 03/14/2020 REASON FOR FOLLOWUP: 1. Bilateral feet athlete's foot with cellulitis. 2. Bilateral hand rash. INTERVAL HISTORY: The patient is currently afebrile, has been complaining of rash mostly painful rash to palms of both hands. Denies having any chest pain or shortness of breath or cough. No abdominal pain or diarrhea. PHYSICAL EXAMINATION: Blood pressure 158/81 with a pulse of 93, temperature 98.4. He is 96% on room air. General description is a middle-aged male up in the room in no distress. RESPIRATORY SYSTEM: Unlabored breathing, clear to auscultation anteriorly. HEART: S1, S2. Regular rate and rhythm. ABDOMEN: Soft, no tenderness. The patient did have a generalized maculopapular rash on the trunk with rash on bilateral hands. DIAGNOSTIC IMPRESSION AND PLAN: 1. Patient admitted to the hospital with rash, question of viral etiology versus infectious. STD was a consideration in view of his promiscuous social behavior. However, syphilis and HIV testing came back negative. We will see clinical response. 2. The patient extensive athlete's foot, bilateral feet, nystatin cream and will add Lamisil and monitor clinical course closely. MMODL / IJN: [id number] /
[2020-03-15] MEDS: amLODIPine 2.5 MG TAB PO SCH ×2 (09:32→21:25)
[2020-03-15] MEDS: DOXYCYCLINE 100 MG CAP PO SCH ×2 (09:32→21:25)
[2020-03-15] MEDS: CLOTRIMAZOLE 1% CREAM 15 GM TUBE TOPICAL SCH ×2 (09:32→21:29)
[2020-03-15] MEDS: TERBINAFINE 250 MG TAB PO SCH (09:33)
[2020-03-15 10:26] LABS: African American GFR (CKD) >90 (>60 ml/min/1.73 sqM); Non-African American GFR(CKD) >90 (>60 ml/min/1.73 sqM)
[2020-03-15 14:53] LABS: C Reactive Protein 21.5 mg/L (<10.0)
[2020-03-15] MEDS ORDERED: methylPREDNISolone SOD SUCCI 125 MG/2 ML VIAL IV STA (15:28)
[2020-03-15] MEDS: HYDROcodone/APAP 5-325MG 1 EACH TAB PO PRN ×2 (16:15→22:49)
--- NOTE | 2020-03-15 23:26 | PN ---
PROGRESS NOTE DATE OF SERVICE: 03/15/2020 REASON FOR FOLLOWUP: Extensive rash to the palms and soles. INTERVAL HISTORY: The patient is currently afebrile. Still complaining of significant rash which is burning to the palms and feet. Denies having any chest pain or shortness of breath or cough. No nausea or vomiting. No abdominal pain or diarrhea. The patient was not on any medication before this rash started. PHYSICAL EXAMINATION: Blood pressure 164/96, pulse of 98, temperature of 98.4. He is 95% on room air. General description is a middle-aged male lying in bed in no distress. RESPIRATORY SYSTEM: Unlabored breathing. Clear to auscultation anteriorly. HEART: S1, S2. Regular rate and rhythm. ABDOMEN: Soft. No tenderness. The patient does have a maculopapular rash to the hands and rash to the lateral border of both feet. DIAGNOSTIC IMPRESSION AND PLAN: Patient with a rash to the palms body in this patient with initial concern for infectious etiology with his high-risk sexual behavior, though initial workup came back negative. Negative syphilis and HIV serology. A rheumatologic workup will be ordered. The patient will be given a dose of Rocephin 2 grams daily steroid and see clinical response. Continue with the clotrimazole cream and the Lamisil for his extensive tinea infection. We will repeat it tomorrow. Dermatology consult has been requested as well. MMODL / IJN: [id number] /
[2020-03-16] MEDS: amLODIPine 2.5 MG TAB PO SCH ×2 (08:09→19:53)
[2020-03-16] MEDS: TERBINAFINE 250 MG TAB PO SCH (08:09)
[2020-03-16] MEDS: DOXYCYCLINE 100 MG CAP PO SCH ×2 (08:09→19:53)
[2020-03-16] MEDS: CLOTRIMAZOLE 1% CREAM 15 GM TUBE TOPICAL SCH ×2 (08:09→19:59)
[2020-03-16 09:02] LABS: African American GFR (CKD) >90 (>60 ml/min/1.73 sqM); Non-African American GFR(CKD) >90 (>60 ml/min/1.73 sqM)
[2020-03-16] MEDS: methylPREDNISolone SOD SUCCI 125 MG/2 ML VIAL IV SCH (16:57)
--- NOTE | 2020-03-16 23:34 | PN ---
PROGRESS NOTE DATE OF SERVICE: 03/16/2020 REASON FOR FOLLOW UP: Rash. INTERVAL HISTORY: Patient is currently afebrile. The patient is feeling better today. Overall pain and discomfort and itching to the bilateral hands and her rash has decreased compared to yesterday currently with no new rash. No chest pain, shortness of breath or cough. No abdominal pain, no diarrhea. PHYSICAL EXAMINATION: Blood pressure 126/82 with a pulse of 95, temperature 98.5, he is 97% on room air. General description is a middle-aged male up in the bed in no distress. Respiratory system: Unlabored breathing, clear to auscultation anteriorly. Heart S1, S2. Regular rate and rhythm. Abdomen soft, no tenderness. Bilateral hands rash seemed to have decreased in intensity. LABS: Creatinine 0.77. DIAGNOSTIC IMPRESSION AND PLAN: Patient with a rash to the palms with concern for infectious disease etiology, though initial workup came back negative. Her rheumatologic workup has come back negative as well. The patient seemed to have responded either to Rocephin or the Solu-Medrol yesterday. We will keep the patient on IV Rocephin one more day and re-evaluate the patient tomorrow. Continue finishing therapy with oral Ceftin and monitor clinical course closely. MMODL / IJN: [id number] /
--- NOTE | 2020-03-17 00:13 | P.PN ---
Subjective Progress Note Date: 03/14/20 Principal diagnosis: Generalized maculopapular and vesicular rash mainly involved hands palms and feet as well as over the chest Patient is a 34-year-old male with a known history of hypertension, obstructive sleep apnea, psoriasis and previous history of smoking and daily marijuana use was sent to hospital from PCPs office due to generalized maculopapular rash anthony cially over the bilateral palm and feet. Patient states that he developed rash over the foot and spread to his hand for the past 4 to 5 days. Patient was seen in the ER initially and was started on antifungal lotion. Patient did not get better and was seen in the ER again and was started on anti-scabies cream which did not help either. Patient was seen by his primary care physician and sent to hospital for evaluation. Patient otherwise denied any complaints of fever or chills. No nausea vomiting or abdominal pain or diarrhea. No headache or dizziness or lightheadedness. No chest pain or shortness of breath. Patient is complaining of a rash spreading over his chest and all over the body. No complaints of itching. Patient admits having 4 sexual partners recently. Denied any dysuria or hematuria. No urethral discharge. Patient also noticed small vesicle on his left side of his scrotum which was drained this morning. Denied any purulent drainage. Denied any lymph node enlargement. Objective - Vital Signs Vital signs: Vital Signs Temp 98.0 F 03/14/20 08:01 Pulse 94 03/14/20 08:01 Resp 18 03/14/20 08:01 BP 150/97 03/14/20 08:01 Pulse Ox 97 03/14/20 08:01 Intake & Output 03/13/20 03/14/20 03/14/20 18:59 06:59 18:59 Weight 151 kg Other: Voiding Method Toilet Toilet Toilet # Voids 1 - Exam PHYSICAL EXAMINATION: Patient is lying in the bed comfortably, no acute distress, awake alert and oriented.. HEENT: Normocephalic. Neck is supple. Pupils reactive. Nostrils clear. Oral cavity is moist. Ears reveal no drainage. Neck reveals no JVD, carotid bruits, or thyromegaly. CHEST EXAMINATION: Trachea is central. Symmetrical expansion. Lung velazquez clear to auscultation and percussion. CARDIAC: Normal S1, S2 with no gallops. No murmurs ABDOMEN: Soft. Bowel sounds normal. No organomegaly. No abdominal bruits. Extremities: reveal no edema. No clubbing or cyanosis. Right upper activity swelling about the elbow up to shoulder with tenderness noted on the medial side. Neurologically awake, alert, oriented x3 with well-coordinated movements. No focal deficits noted Skin: Patient does have maculopapular rash involving palms and feet as well as anterior chest. No drainage from the vesicles.. Scaly skin over the feet. Psoriatic patch on the right knee. Psychiatric: Coperative. Nonsuicidal Musculoskeletal: No joint swelling or deformity. Normal range of motion. - Labs CBC & Chem 7: 03/13/20 15:33 03/16/20 07:42 Labs: Abnormal Lab Results - Last 24 Hours (Table) 03/13/20 Range/Units 15:33 Glucose 138 H (74-99) mg/dL Assessment and Plan Assessment: Generalized maculopapular and vesicular rash mainly involved hands palms and feet as well as over the chest.Possible disseminated fungal infection. Suspected secondary syphilitic rash.Treponemal antibody negative. Multiple sexual partners Obstructive sleep apnea on CPAP at home Hypertension Psoriasis not active Previous history of smoking Daily marijuana use Morbid obesity with BMI 46.4 Plan: Patient will be continued on empiric antibiotics. UA negative. HIV, hepatitis panel, syphilis testing negaTIVE. ID is following.. Further recommendations based on clinical course. Time with Patient: Greater than 30
--- NOTE | 2020-03-17 00:15 | P.PN ---
Subjective Progress Note Date: 03/15/20 Principal diagnosis: Generalized maculopapular and vesicular rash mainly involved hands palms and feet as well as over the chest Patient is a 34-year-old male with a known history of hypertension, obstructive sleep apnea, psoriasis and previous history of smoking and daily marijuana use was sent to hospital from PCPs office due to generalized maculopapular rash anthony cially over the bilateral palm and feet. Patient states that he developed rash over the foot and spread to his hand for the past 4 to 5 days. Patient was seen in the ER initially and was started on antifungal lotion. Patient did not get better and was seen in the ER again and was started on anti-scabies cream which did not help either. Patient was seen by his primary care physician and sent to hospital for evaluation. Patient otherwise denied any complaints of fever or chills. No nausea vomiting or abdominal pain or diarrhea. No headache or dizziness or lightheadedness. No chest pain or shortness of breath. Patient is complaining of a rash spreading over his chest and all over the body. No complaints of itching. Patient admits having 4 sexual partners recently. Denied any dysuria or hematuria. No urethral discharge. Patient also noticed small vesicle on his left side of his scrotum which was drained this morning. Denied any purulent drainage. Denied any lymph node enlargement. 03/15/2020 Patient still having generalized maculopapular rash and scaly skin over the feet. Work-up has been negative for rheumatoid factor, EUGENIA screen, C3-C4 within normal limits. Hepatitis, troponin antibody and HIV negative. Possible drug vascular suspected and was started on IV steroids and monitor closely. Patient has been afebrile. No fever no chills. No complaints of chest pain or shortness of breath. No other acute overnight issues. Patient is being continued on antibiotics in the form of doxycycline. Current medications reviewed. Objective - Vital Signs Vital signs: Vital Signs Temp 98.4 F 03/15/20 19:40 Pulse 119 H 03/15/20 19:40 Resp 18 03/15/20 19:40 BP 164/96 03/15/20 19:40 Pulse Ox 95 03/15/20 19:40 Intake & Output 03/15/20 03/15/20 03/16/20 06:59 18:59 06:59 Other: Voiding Method Toilet # Voids 1 2 - Labs CBC & Chem 7: 03/13/20 15:33 03/16/20 07:42 Labs: Abnormal Lab Results - Last 24 Hours (Table) 03/15/20 03/15/20 Range/Units 14:01 14:01 ESR 28 H (0-15) mm/hr C-Reactive Protein 21.5 H (<10.0) mg/L
[2020-03-17] MEDS: amLODIPine 2.5 MG TAB PO SCH (07:28)
[2020-03-17] MEDS: TERBINAFINE 250 MG TAB PO SCH (07:28)
[2020-03-17] MEDS: methylPREDNISolone SOD SUCCI 125 MG/2 ML VIAL IV SCH (07:28)
[2020-03-17] MEDS: CLOTRIMAZOLE 1% CREAM 15 GM TUBE TOPICAL SCH (07:29)
[2020-03-17] MEDS: DOXYCYCLINE 100 MG CAP PO SCH (07:29)
[2020-03-17 07:59] LABS: Basophils # (A) 0.1 k/uL (0-0.2); Basophils % (A) 0 %; Eosinophils # (A) 0.1 k/uL (0-0.7); Eosinophils % (A) 1 %; HCT 43.2 % (39.0-53.0); HGB 13.6 gm/dL (13.0-17.5); Lymphocytes # (A) 2.3 k/uL (1.0-4.8); Lymphocytes % (A) 13 %; MCH 29.9 pg (25.0-35.0); MCHC 31.5 g/dL (31.0-37.0); MCV 95.1 fL (80.0-100.0); Mean Platelet Volume 7.7; Monocytes # (A) 0.6 k/uL (0-1.0); Monocytes % (A) 4 %; Neutrophils # (A) 14.2 k/uL (1.3-7.7); Neutrophils % (A) 81 %; Platelet Count 312 k/uL (150-450); RBC 4.55 m/uL (4.30-5.90); RDW 14.1 % (11.5-15.5); WBC 17.5 k/uL (3.8-10.6)
[2020-03-17 08:20] LABS: African American GFR (CKD) >90 (>60 ml/min/1.73 sqM); Anion Gap 11 mmol/L; Blood Urea Nitrogen 17 mg/dL (9-20); Calcium 9.1 mg/dL (8.4-10.2); Carbon Dioxide 26 mmol/L (22-30); Chloride 102 mmol/L (98-107); Glucose 115 mg/dL (74-99); Non-African American GFR(CKD) >90 (>60 ml/min/1.73 sqM); Sodium 139 mmol/L (137-145)
[2020-03-17 15:43] VITALS: BP 143/76; PULSE 88; RESP 18; TEMP 98.4
--- NOTE | 2020-03-17 15:45 | PN ---
PROGRESS NOTE DATE OF SERVICE: 03/17/2020 REASON FOR FOLLOW UP: Rash. Questionable infection . INTERVAL HISTORY: The patient is currently afebrile. The patient did have overall improvement in symptoms for the rash decreased intensity, itching has improved. No chest pain or cough. No abdominal pain. No diarrhea. PHYSICAL EXAMINATION: Blood pressure 126/76, pulse 85, temperature 97.6. He is 95% on room air. General description: The patient is a middle-aged male up in the bed in no distress. Respiratory system: Unlabored breathing. Clear to auscultation anteriorly. Heart S1, S2. Regular rate and rhythm. ABDOMEN: Soft. Nontender. The rash has decreased intensity. No new rash was noticed. LABS: Hemoglobin 13.8, white count 17.5. Creatinine 0.78. DIAGNOSTIC IMPRESSION AND PLAN: Patient with a rash with question of infection the patient. Most of the infection workup has been negative including syphilis, HIV and hepatitis. The serological testing for illness has been negative as well as possible allergic reaction. The patient to finish therapy with a tapering course of steroids along with doxycycline and close outpatient followup. Prescription sent to the pharmacy. MMKATLINL / CARISAN: [id number] /
[2020-03-18] MEDS ORDERED: predniSONE 50 MG TAB PO SCH (09:00)
[2020-03-18 14:43] LABS: C-ANCA <1:20 Titer (<1:20)
--- NOTE | 2020-03-19 13:31 | CDI ---
Documentation Clarification Form Date: 03/19/20 From: [place] Phone: If you have a question about this query, please contact Ketty Salomon, Services Account Manager at [phone] between 8am and 5pm. Admit Date: 03/13/20 Discharge Date:03/17/20 Patient Name: Tra Farmer Visit Number: [id number] ATTENTION: The Clinical Documentation Specialists (CDI) and [facility] Coding Staff appreciate your assistance in clarifying documentation. Please respond to the clarification below the line at the bottom and electronically sign. The CDI & [facility] Coding staff will review the response and follow-up if needed. Please note: Queries are made part of the Legal Health Record. If you have any questions, please contact the author of this message via ITS. Dear Dr. Perez The patient presented with the following: generalized rash History/Risk Factors: Psoriasis not active, hypertension, obstructive sleep apnea, morbid obesity Clinical Indicators: generalized maculopapular rash especially over the bilateral palms, feet and chest. Lab findings: ESR 28, C-Reactive protein 21.5 Vital Signs: T. 97.9, P. 114, R 18, BP 167/99 Treatment: IV Methylprednisolone, IV Vancomycin, IV Rocephin, PO Doxycycline Consults: ID contradicts himself and says cutaneous candidiasis and then no evidence. Also documented bilateral athlete's foot with cellulitis In your professional opinion, can you please clarify the reason for the rash? Cellulitis allergic 2nd to (please specify) Cellulitis ruled out allergic reaction 2nd to (please specify) Cellulitis and rash 2nd to (please specify) Cellulitis ruled out Rash 2nd to (please specify) Other, please specify Cellulitis and rash 2nd to possible drug reaction Unable to determine MTDD
--- NOTE | 2020-04-04 20:35 | P.PN ---
Subjective Progress Note Date: 03/16/20 Principal diagnosis: Generalized maculopapular and vesicular rash mainly involved hands palms and feet as well as over the chest Patient is a 34-year-old male with a known history of hypertension, obstructive sleep apnea, psoriasis and previous history of smoking and daily marijuana use was sent to hospital from PCPs office due to generalized maculopapular rash anthony cially over the bilateral palm and feet. Patient states that he developed rash over the foot and spread to his hand for the past 4 to 5 days. Patient was seen in the ER initially and was started on antifungal lotion. Patient did not get better and was seen in the ER again and was started on anti-scabies cream which did not help either. Patient was seen by his primary care physician and sent to hospital for evaluation. Patient otherwise denied any complaints of fever or chills. No nausea vomiting or abdominal pain or diarrhea. No headache or dizziness or lightheadedness. No chest pain or shortness of breath. Patient is complaining of a rash spreading over his chest and all over the body. No complaints of itching. Patient admits having 4 sexual partners recently. Denied any dysuria or hematuria. No urethral discharge. Patient also noticed small vesicle on his left side of his scrotum which was drained this morning. Denied any purulent drainage. Denied any lymph node enlargement. 03/15/2020 Patient still having generalized maculopapular rash and scaly skin over the feet. Work-up has been negative for rheumatoid factor, EUGENIA screen, C3-C4 within normal limits. Hepatitis, troponin antibody and HIV negative. Possible drug vascular suspected and was started on IV steroids and monitor closely. Patient has been afebrile. No fever no chills. No complaints of chest pain or shortness of breath. No other acute overnight issues. Patient is being continued on antibiotics in the form of doxycycline. 03/16/2020 Patient states that his rash is better today. Currently being continued IV methylprednisolone which will be changed to by mouth and tapering course. Patient has been afebrile. Other infectious work-up has been negative. Patient will monitor for another 24 hours for more clinical improvement. ID is following. Current medications reviewed. Objective - Vital Signs Vital signs: Vital Signs Temp 98.4 F 03/16/20 15:00 Pulse 101 H 03/16/20 15:00 Resp 18 03/16/20 15:00 BP 166/79 03/16/20 15:00 Pulse Ox 96 03/16/20 15:00 Intake & Output 03/15/20 03/16/20 03/16/20 18:59 06:59 18:59 Intake Total 200 Balance 200 Intake: Oral 200 Other: Voiding Method Toilet Toilet Toilet # Voids 2 2 1 - Exam PHYSICAL EXAMINATION: Patient is lying in the bed comfortably, no acute distress, awake alert and oriented.. HEENT: Normocephalic. Neck is supple. Pupils reactive. Nostrils clear. Oral cavity is moist. Ears reveal no drainage. Neck reveals no JVD, carotid bruits, or thyromegaly. CHEST EXAMINATION: Trachea is central. Symmetrical expansion. Lung velazquez clear to auscultation and percussion. CARDIAC: Normal S1, S2 with no gallops. No murmurs ABDOMEN: Soft. Bowel sounds normal. No organomegaly. No abdominal bruits. Extremities: reveal no edema. No clubbing or cyanosis. Right upper activity swelling about the elbow up to shoulder with tenderness noted on the medial side. Neurologically awake, alert, oriented x3 with well-coordinated movements. No focal deficits noted Skin: Patient does have maculopapular rash involving palms and feet as well as anterior chest. No drainage from the vesicles.. Scaly skin over the feet. Psoriatic patch on the right knee. Psychiatric: Coperative. Nonsuicidal Musculoskeletal: No joint swelling or deformity. Normal range of motion. - Labs CBC & Chem 7: 03/17/20 07:10 03/17/20 07:10 Assessment and Plan Assessment: Generalized maculopapular and vesicular rash mainly involved hands palms and feet as well as over the chest. Possible Drug Rash Vs disseminated fungal infection. Possible LLE cellulitis Suspected secondary syphilitic rash.Treponemal antibody negative. Multiple sexual partners Obstructive sleep apnea on CPAP at home Hypertension Psoriasis not active Previous history of smoking Daily marijuana use Morbid obesity with BMI 46.4 Plan: Patient will be continued on empiric antibiotics. UA negative. HIV, hepatitis panel, syphilis testing negaTIVE. ID is following.. c/w IV steroids. Further recommendations based on clinical course. Time with Patient: Greater than 30
--- NOTE | 2020-04-04 20:40 | P.DS ---
Providers Date of admission: 03/13/20 14:41 Expected date of discharge: 03/17/20 Attending physician: Donato Estes Consults: 03/13/20 15:27 Consult Physician Urgent Consulting Provider: Marianne Lorenzana Consult Reason/Comments: cellulitis/ rash/ recently treated for scabies Do you want consulting provider notified?: Yes 03/15/20 13:30 Consult Physician Urgent Consulting Provider: Gasper Ramírez Consult Reason/Comments: rash Do you want consulting provider notified?: Yes Primary care physician: Kasey Unm Carrie Tingley Hospital Course: Discharge diagnosis Generalized maculopapular and vesicular rash mainly involved hands palms and feet as well as over the chest. Possible Drug Rash . unlikely disseminated fungal infection. Possible LLE cellulitis Suspected secondary syphilitic rash.Treponemal antibody negative. Multiple sexual partners Obstructive sleep apnea on CPAP at home Hypertension Psoriasis not active Previous history of smoking Daily marijuana use Morbid obesity with BMI 46.4 Hospital course Patient is a 34-year-old male with a known history of hypertension, obstructive sleep apnea, psoriasis and previous history of smoking and daily marijuana use was sent to hospital from PCPs office due to generalized maculopapular rash especially over the bilateral palm and feet. Patient states that he developed rash over the foot and spread to his hand for the past 4 to 5 days. Patient was seen in the ER initially and was started on antifungal lotion. Patient did not get better and was seen in the ER again and was started on anti-scabies cream which did not help either. Patient was seen by his primary care physician and sent to hospital for evaluation. Patient otherwise denied any complaints of fever or chills. No nausea vomiting or abdominal pain or diarrhea. No headache or dizziness or lightheadedness. No chest pain or shortness of breath. Patient is complaining of a rash spreading over his chest and all over the body. No complaints of itching. Patient admits having 4 sexual partners recently. Denied any dysuria or hematuria. No urethral discharge. Patient also noticed small vesicle on his left side of his scrotum which was drained this morning. Denied any purulent drainage. Denied any lymph node enlargement. 03/15/2020 Patient still having generalized maculopapular rash and scaly skin over the feet. Work-up has been negative for rheumatoid factor, EUGENIA screen, C3-C4 within normal limits. Hepatitis, troponin antibody and HIV negative. Possible drug vascular suspected and was started on IV steroids and monitor closely. Patient has been afebrile. No fever no chills. No complaints of chest pain or shortness of breath. No other acute overnight issues. Patient is being continued on antibiotics in the form of doxycycline. 03/16/2020 Patient states that his rash is better today. Currently being continued IV methylprednisolone which will be changed to by mouth and tapering course. Patient has been afebrile. Other infectious work-up has been negative. Patient will monitor for another 24 hours for more clinical improvement. ID is following. 03/17/2020 Patient is bilateral upper extremities and feet rash is much improved today. Continued on IV steroids and change to by mouth and tapering course upon discharge. Patient has been afebrile. Continue with empiric antibiotics. Patient is being discharged home today and follow-up with PCP and ID clinic in the next 1 week. Patient is anxious to be discharged home. Otherwise no acute overnight issues. Cultures have been negative. Leukocytosis likely due to Steroids. PHYSICAL EXAMINATION: Patient is lying in the bed comfortably, no acute distress, awake alert and oriented.. HEENT: Normocephalic. Neck is supple. Pupils reactive. Nostrils clear. Oral cavity is moist. Ears reveal no drainage. Neck reveals no JVD, carotid bruits, or thyromegaly. CHEST EXAMINATION: Trachea is central. Symmetrical expansion. Lung velazquez clear to auscultation and percussion. CARDIAC: Normal S1, S2 with no gallops. No murmurs ABDOMEN: Soft. Bowel sounds normal. No organomegaly. No abdominal bruits. Extremities: reveal no edema. No clubbing or cyanosis. Right upper activity swelling about the elbow up to shoulder with tenderness noted on the medial side. Neurologically awake, alert, oriented x3 with well-coordinated movements. No focal deficits noted Skin: Patient does have maculopapular rash involving palms and feet as well as anterior chest. No drainage from the vesicles.. Scaly skin over the feet. Psoriatic patch on the right knee. Psychiatric: Coperative. Nonsuicidal Musculoskeletal: No joint swelling or deformity. Normal range of motion. Discharge vitals reviewed. Patient Condition at Discharge: Stable Plan - Discharge Summary New Discharge Prescriptions: New Doxycycline Hyclate 100 mg PO Q12H #24 tab predniSONE See Taper PO DIRECTED #15 tab Continue amLODIPine BESYLATE [Norvasc] 2.5 mg PO DAILY 7 Days #7 tab Ibuprofen 800 mg PO BID-W/MEALS PRN PRN Reason: Pain Discharge Medication List amLODIPine BESYLATE [Norvasc] 2.5 mg PO DAILY 7 Days #7 tab 03/11/20 [Rx] Ibuprofen 800 mg PO BID-W/MEALS PRN 03/13/20 [History] Doxycycline Hyclate 100 mg PO Q12H #24 tab 03/17/20 [Rx] predniSONE See Taper PO DIRECTED #15 tab 03/17/20 [Rx] Discharge Disposition: HOME SELF-CARE
== END 2020-03-17 16:00 | disposition home or self-care (01) ==
LOC: 4SSUR 14:41 → INTOOBSV 14:41 → UNDODISIN 03-17 16:00
PROVIDERS: ADMIT Internal Medicine; ATTEND Internal Medicine
DX: R21 Rash and other nonspecific skin eruption (principal); Z68.42 Body mass index [BMI] 45.0-49.9, adult; E66.01 Morbid (severe) obesity due to excess calories; L27.0 Generalized skin eruption due to drugs and medicaments taken internally; D72.829 Elevated white blood cell count, unspecified; T38.0X5A Adverse effect of glucocorticoids and synthetic analogues, initial encounter; B35.3 Tinea pedis; I10 Essential (primary) hypertension; G47.33 Obstructive sleep apnea (adult) (pediatric); Z87.891 Personal history of nicotine dependence; Z79.899 Other long term (current) drug therapy; Z88.0 Allergy status to penicillin; Z82.49 Family history of ischemic heart disease and other diseases of the circulatory system; L40.9 Psoriasis, unspecified; F12.90 Cannabis use, unspecified, uncomplicated
CPT/HCPCS: 96376 ×3; 96361 ×2; 96365; 96366 ×2; 96367; 96375; 99282; 86255; 86160 ×2; 86162; 80048 ×2; 80074; 85652; 82565 ×2; 84450; 84460; 85025 ×2; 86140; 86431; 81003; 86780; 86038; 87390; 83036; G0378 ×5; G0379; J3370 ×2; J2930 ×3; J0696 ×2

== ENCOUNTER 2020-04-05 19:27 | Emergency (ER) | payer OTHER ==
[2020-04-05 19:37] VITALS: BP 158/100; PULSE 102; RESP 16; TEMP 98
[2020-04-05] MEDS ORDERED: LIDOCAINE 1% INJ 10MG/ML (20 ML MDV) SQ ONE (20:11)
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
== END 2020-04-05 20:56 | disposition home or self-care (01) ==
LOC: EC 19:27
DX: L02.214 Cutaneous abscess of groin (principal); G47.30 Sleep apnea, unspecified; Z87.891 Personal history of nicotine dependence; Z99.89 Dependence on other enabling machines and devices; Z88.0 Allergy status to penicillin
CPT/HCPCS: 10060; 99283

== ENCOUNTER 2021-02-10 10:03 | Emergency (ER) | payer OTHER ==
[2021-02-10 10:18] VITALS: BP 163/108; PULSE 101; RESP 16; TEMP 97.8
[2021-02-10] MEDS ORDERED: KETOROLAC 15 MG/ML 1 ML VIAL IVP STA (10:28)
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
--- NOTE | 2021-02-10 10:57 | XR ---
Right hip HISTORY: Pain 2 views the right hip No comparisons Bone mineralization and alignment are maintained. Exam somewhat limited by patient body habitus. No f racture or dislocation. IMPRESSION: No abnormality evident. Alternate imaging may be of benefit as indicated.
--- NOTE | 2021-02-10 10:58 | XR ---
Lumbar spine HISTORY: Pain radiating down right leg 3 views of the lumbar spine correlated prior exam 10/04/2018 There is no interval change. Lumbar vertebral bodies show preserved height and alignment. Is multilev el spondylosis. Minimal retrolisthesis grade 1 L4-5. Loss of disc height present L3-4, L4-5. Sclerosi s present posterior elements of the lower lumbar spine. Postop changes are noted incidentally within the abdomen. IMPRESSION: Degenerative disc disease and facet arthropathy. Consider lumbar MRI.
[2021-02-10] MEDS ORDERED: ACET/COD 300 MG/30 MG STARTER PACK 6 TAB BTL PO STA (11:21)
== END 2021-02-10 11:26 | disposition home or self-care (01) ==
LOC: EC 10:03
DX: M25.551 Pain in right hip (principal); I10 Essential (primary) hypertension; G47.33 Obstructive sleep apnea (adult) (pediatric); Z99.81 Dependence on supplemental oxygen; Z90.09 Acquired absence of other part of head and neck; F12.90 Cannabis use, unspecified, uncomplicated
CPT/HCPCS: 72100; 73502; 99283; 96374; J1885

== ENCOUNTER 2021-07-21 20:58 | Emergency (ER) | payer OTHER ==
[2021-07-21 21:16] VITALS: RESP 18; TEMP 97.6
[2021-07-21] MEDS ORDERED: KETOROLAC 15 MG/ML 1 ML VIAL IM STA (21:29)
--- NOTE | 2021-07-21 23:07 | US ---
EXAMINATION TYPE: US abdomen limited DATE OF EXAM: 07/21/2021 COMPARISON: CT 2017 CLINICAL HISTORY: right low abdomen abscess. Abscess per order. Pain and redness within the right low er quadrant. Scanned right lower abdomen, area of patient's concern. Heterogeneous, hypoechoic area with vascularity seen measuring 4.2 x 3.2 x 1.0 cm. IMPRESSION: There is complex hypoechoic collection that is superficial in the right lower quadrant. T his could be a phlegmon or abscess.
[2021-07-21] MEDS ORDERED: LIDOCAINE 1% INJ 10MG/ML (20 ML MDV) SQ ONE (23:13)
[2021-07-21] MEDS ORDERED: MORPHINE SULFATE 4 MG/ML SYRINGE IM STA (23:43)
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
[2021-07-22 00:35] VITALS: BP 110/79; PULSE 98
== END 2021-07-22 00:35 | disposition home or self-care (01) ==
LOC: EC 20:58
DX: L02.211 Cutaneous abscess of abdominal wall (principal); I10 Essential (primary) hypertension; E66.9 Obesity, unspecified; F12.90 Cannabis use, unspecified, uncomplicated; Z87.891 Personal history of nicotine dependence; Z88.0 Allergy status to penicillin; Z68.43 Body mass index [BMI] 50.0-59.9, adult
CPT/HCPCS: 87070; 87205; 76705; 10060; 96372 ×2; 99283; J2270; J2001; J1885

== ENCOUNTER 2021-09-14 22:51 | Emergency (ER) | payer OTHER ==
[2021-09-14] MEDS ORDERED: LIDOCAINE 2%-EPI 1:100,000 20 ML VIAL SQ STA (23:37)
[2021-09-15] MEDS ORDERED: CEPHALEXIN 500 MG CAP PO STA (00:31)
[2021-09-15] MEDS ORDERED: SULFAMETHOX-TMP 800-160MG 1 EACH TAB PO STA (00:31)
[2021-09-15] MEDS ORDERED: SULFAMETH-TMP DS STARTER PACK 2 TAB BTL PO STA (00:32)
[2021-09-15] MEDS ORDERED: CEPHALEXIN 500MG STARTER PACK 4 CAP BTL PO STA (00:32)
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
--- NOTE | 2021-09-15 02:30 | US ---
EXAMINATION TYPE: US venous doppler duplex LE RT DATE OF EXAM: 09/15/2021 1:29 AM COMPARISON: NONE CLINICAL HISTORY: RLE thigh pain, mass. Pain in right thigh. Probe cover used to scan area of patient 's concern/ worst pain. SIDE PERFORMED: Right TECHNIQUE: The lower extremity deep venous system is examined utilizing real time linear array sonog alex with graded compression, doppler sonography and color-flow sonography. VESSELS IMAGED: Common Femoral Vein Deep Femoral Vein Greater Saphenous Vein * Femoral Vein Popliteal Vein Small Saphenous Vein * Proximal Calf Veins (* superficial vessels) Right Leg: There appears to be internal echoes within a superficial tortuous vessel at the level of the mid-distal medial thigh. This vessel appears to compress incompletely and show color defect. Poss ible branch of GSV. No evidence of DVT in veins imaged at this time. Duplicate femoral vein noted. 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 There is no evidence of deep vein thr ombosis in the right leg.
[2021-09-15 02:52] VITALS: BP 156/96; PULSE 102; RESP 22; TEMP 98.3
== END 2021-09-15 02:52 | disposition home or self-care (01) ==
LOC: EC 22:51
DX: L02.214 Cutaneous abscess of groin (principal); I82.811 Embolism and thrombosis of superficial veins of right lower extremity; I10 Essential (primary) hypertension; L40.9 Psoriasis, unspecified; F12.90 Cannabis use, unspecified, uncomplicated; Z72.89 Other problems related to lifestyle; Z87.891 Personal history of nicotine dependence
CPT/HCPCS: 10060; 99283

== ENCOUNTER 2021-11-14 16:43 | Emergency (ER) | payer OTHER ==
[2021-11-14 16:58] VITALS: TEMP 97.9
[2021-11-14 17:24] LABS: Appearance,Urine Clear (Clear); Bilirubin,Urine Negative (Negative); Blood,Urine Negative (Negative); Color,Urine Yellow; Glucose,Urine (UA) 3+ (Negative); Ketones,Urine Negative (Negative); Leukocyte Esterase,Urine Small (Negative); Mucus,Urine Rare /hpf; Nitrite,Urine Negative (Negative); PH, Urine 5.5 (5.0-8.0); Protein,Urine Trace (Negative); RBC,Urine 2 /hpf (0-5); Specific Gravity,Urine 1.031 (1.001-1.035); WBC,Urine 1 /hpf (0-5)
[2021-11-14 17:28] LABS: ALT 111 U/L (4-49); AST 87 U/L (17-59); African American GFR (CKD) >90 (>60 ml/min/1.73 sqM); Albumin 4.3 g/dL (3.5-5.0); Alkaline Phosphatase 74 U/L (38-126); Amylase 58 U/L (30-110); Anion Gap 8 mmol/L; Blood Urea Nitrogen 16 mg/dL (9-20); Calcium 9.2 mg/dL (8.4-10.2); Carbon Dioxide 29 mmol/L (22-30); Chloride 100 mmol/L (98-107); Glucose 296 mg/dL (74-99); Lipase 128 U/L (23-300); Non-African American GFR(CKD) >90 (>60 ml/min/1.73 sqM); Potassium 4.4 mmol/L (3.5-5.1); Sodium 137 mmol/L (137-145); Total Bilirubin 0.5 mg/dL (0.2-1.3); Total Protein 7.9 g/dL (6.3-8.2)
--- NOTE | 2021-11-14 17:37 | XR ---
EXAMINATION TYPE: XR KUB DATE OF EXAM: 11/14/2021 COMPARISON: 07/28/2013 HISTORY: Abdominal pain TECHNIQUE: 2 views upright FINDINGS: There is no sign of intestinal obstruction or pneumoperitoneum. Fecal pattern is normal. Th ere is no sign of a mass. There are no calcifications over the kidneys. IMPRESSION: Nonacute abdomen. No change.
[2021-11-14 17:42] LABS: Basophils % (A) 1 %; Eosinophils # (A) 0.1 k/uL (0-0.7); Eosinophils % (A) 2 %; HCT 42.2 % (39.0-53.0); HGB 14.2 gm/dL (13.0-17.5); Lymphocytes # (A) 2.3 k/uL (1.0-4.8); Lymphocytes % (A) 30 %; MCH 31.6 pg (25.0-35.0); MCHC 33.8 g/dL (31.0-37.0); MCV 93.4 fL (80.0-100.0); Mean Platelet Volume 7.7; Monocytes # (A) 0.3 k/uL (0-1.0); Monocytes % (A) 4 %; Neutrophils # (A) 4.7 k/uL (1.3-7.7); Neutrophils % (A) 62 %; Platelet Count 233 k/uL (150-450); RBC 4.51 m/uL (4.30-5.90); RDW 14.4 % (11.5-15.5); WBC 7.5 k/uL (3.8-10.6)
--- NOTE | 2021-11-14 19:27 | CT ---
EXAMINATION TYPE: CT abdomen pelvis w con DATE OF EXAM: 11/14/2021 COMPARISON: 11/25/2016 HISTORY: Abdominal pain. CT DLP: 3868.4 mGycm Automated exposure control for dose reduction was used. CONTRAST: Performed with IV Contrast, patient injected with 100 mL of Isovue 300. Images obtained from the diaphragm to the floor the pelvis with IV contrast. The lung bases are clear. There is no pleural effusion. Heart size is normal. There is no pericardial effusion. There is some fatty infiltration of the liver. Spleen is intact. There is no pancreatic mass. Gallbla dder appears normal. Stomach is intact. There is no adrenal mass. Kidneys have normal size and contour. There is no hydronephrosis. Ureters a re not dilated. There is no retroperitoneal adenopathy. Bladder distends smoothly. There is no mesenteric edema. There is no ascites or free air. There is no bowel obstruction. Appendi x is medial and appears normal. Delayed images show normal renal excretion. The lumbar vertebra appear intact. There is no compression fracture. Bony pelvis is intact. Hip joint s are intact. There are surgical clips on the anterior abdominal wall. IMPRESSION: There is some mild fatty infiltration of the liver. No acute abnormality in the abdomen pelvis. No significant change compared to old exam. There is clearing of the mild anterior intra-abdominal fa t stranding compared to old exam
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
[2021-11-14 20:30] VITALS: BP 166/94; PULSE 94; RESP 18
== END 2021-11-14 20:30 | disposition home or self-care (01) ==
LOC: EC 16:43
DX: R10.9 Unspecified abdominal pain (principal); R73.9 Hyperglycemia, unspecified; I10 Essential (primary) hypertension; F12.90 Cannabis use, unspecified, uncomplicated; Z87.891 Personal history of nicotine dependence; Z82.79 Family history of other congenital malformations, deformations and chromosomal abnormalities
CPT/HCPCS: 36415; 80053; 82150; 83605; 83690; 85025; 81001; 83036; 74018; 74177; 99284; Q9967

== ENCOUNTER 2022-08-01 23:01 | Emergency (ER) | payer OTHER ==
[2022-08-01 23:11] VITALS: RESP 20
[2022-08-02] MEDS ORDERED: MORPHINE SULFATE 4 MG/ML SYRINGE IM STA (00:05)
[2022-08-02] MEDS ORDERED: CLINDAMYCIN 150 MG CAP PO STA (00:06)
[2022-08-02] MEDS ORDERED: KETOROLAC 15 MG/ML 1 ML VIAL IM STA (00:06)
[2022-08-02] MEDS ORDERED: BUPIVACAINE (PF) 0.5% 30 ML VIAL SQ STA (00:07)
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
[2022-08-02 00:42] LABS: Glucose,Whole Blood 282 mg/dL (70-110)
[2022-08-02 01:04] VITALS: BP 155/99; PULSE 94; TEMP 99
== END 2022-08-02 01:04 | disposition home or self-care (01) ==
LOC: EC 23:01
DX: L02.214 Cutaneous abscess of groin (principal); R73.9 Hyperglycemia, unspecified; I10 Essential (primary) hypertension; G47.30 Sleep apnea, unspecified; Z87.891 Personal history of nicotine dependence; F12.90 Cannabis use, unspecified, uncomplicated; Z88.0 Allergy status to penicillin
CPT/HCPCS: 36415; 87070; 87205; 87075; 10060; 99284; 96372 ×3; J2270; J1885

== ENCOUNTER → 2022-08-19 | Outpatient (CLI) | payer OTHER ==
--- NOTE | 2022-08-20 00:55 | MR ---
EXAMINATION TYPE: MR knee LT wo con DATE OF EXAM: 08/19/2022 COMPARISON: None HISTORY: Left knee pain, locking, and swelling for 3 months due to fall Multiplanar multiecho imaging of the left knee performed with no contrast. There is spurring of the medial femoral and tibial condyles. There is mild knee joint effusion. The a nterior and posterior cruciate ligaments are intact. No fracture seen. The patella is intact. There i s some increased signal in the posterior horn medial meniscus extending to the inferior surface. Late ral meniscus appears fairly normal. The collateral ligaments are intact. No focal bone destruction. IMPRESSION: Mild knee joint effusion. There is horizontal tear of the posterior horn medial meniscus extending to the inferior surface. Osteoarthritic changes in the medial joint space. No fracture seen. No evidenc e of ligamentous tear.
== END | disposition home or self-care (01) ==
LOC: RADMRIMAIN 19:02
PROVIDERS: ATTEND Family Medicine
DX: M17.12 Unilateral primary osteoarthritis, left knee (principal); M25.462 Effusion, left knee; M23.322 Other meniscus derangements, posterior horn of medial meniscus, left knee; M25.562 Pain in left knee

== ENCOUNTER 2022-10-08 09:01 | Emergency (ER) | payer OTHER ==
[2022-10-08] MEDS ORDERED: ONDANSETRON 4 MG/2 ML VIAL IVP STA (09:43)
[2022-10-08] MEDS ORDERED: KETOROLAC 15 MG/ML 1 ML VIAL IVP STA (09:43)
[2022-10-08] MEDS ORDERED: SODIUM CHLORIDE 0.9% 1,000 ML IV STA (09:43)
[2022-10-08] MEDS ORDERED: SODIUM CHLORIDE 0.9% 500 ML 500 ML IV STA (09:43)
[2022-10-08] MEDS ORDERED: HYDROmorphone 0.5 MG/0.5 ML SYRINGE IVP STA ×2 (09:44→14:05)
[2022-10-08 10:20] LABS: Basophils % (A) 0 %; Eosinophils # (A) 0.1 k/uL (0-0.7); Eosinophils % (A) 2 %; HCT 42.8 % (39.0-53.0); HGB 14.1 gm/dL (13.0-17.5); Lymphocytes # (A) 2.1 k/uL (1.0-4.8); Lymphocytes % (A) 25 %; Mean Platelet Volume 8.7; Monocytes # (A) 0.3 k/uL (0-1.0); Monocytes % (A) 3 %; Neutrophils # (A) 5.7 k/uL (1.3-7.7); Neutrophils % (A) 68 %; Platelet Count 191 k/uL (150-450); RBC 4.71 m/uL (4.30-5.90); RDW 14.4 % (11.5-15.5); WBC 8.4 k/uL (3.8-10.6)
[2022-10-08 10:25] LABS: ALT 74 U/L (4-49); AST 63 U/L (17-59); African American GFR (CKD) >90 (>60 ml/min/1.73 sqM); Albumin 4.1 g/dL (3.5-5.0); Alkaline Phosphatase 87 U/L (38-126); Amylase 57 U/L (30-110); Anion Gap 5 mmol/L; Blood Urea Nitrogen 10 mg/dL (9-20); Calcium 8.7 mg/dL (8.4-10.2); Carbon Dioxide 29 mmol/L (22-30); Chloride 103 mmol/L (98-107); Glucose 243 mg/dL (74-99); Lipase 69 U/L (23-300); Non-African American GFR(CKD) >90 (>60 ml/min/1.73 sqM); Potassium 4.5 mmol/L (3.5-5.1); Sodium 137 mmol/L (137-145); Total Bilirubin 0.4 mg/dL (0.2-1.3); Total Protein 7.8 g/dL (6.3-8.2)
--- NOTE | 2022-10-08 10:52 | CT ---
EXAMINATION TYPE: CT abdomen pelvis w con DATE OF EXAM: 10/08/2022 COMPARISON: CT abdomen and pelvis November 14, 2021 and older study 2017. HISTORY: LLQ pain CT DLP: 4565 mGycm, Automated Exposure Control for Dose Reduction was Utilized. CONTRAST: CT scan of the abdomen and pelvis is performed without oral but with with IV Contrast, patient inject ed with 100 mL of Isovue 300. FINDINGS: LUNG BASES: No significant abnormality is appreciated. LIVER/GB: Liver is heterogeneously hypodense consistent with diffuse fatty infiltration similar to pr ior studies. PANCREAS: No significant abnormality is seen. SPLEEN: No significant abnormality is seen. ADRENALS: No significant abnormality is seen. KIDNEYS: Symmetric corticomedullary uptake and excretion without hydronephrosis seen bilaterally. The re are 2 left renal arteries which is normal variant. BOWEL: Stomach poorly distended and thus suboptimally evaluated. No suspicious small or large bowel d ilatation. Diffuse colonic diverticula without convincing CT evidence for acute diverticulitis. PROSTATE/SEMINAL VESICLES: No gross abnormality seen. LYMPH NODES: No greater than 1cm abdominal or pelvic lymph nodes are appreciated. OSSEOUS STRUCTURES: No significant abnormality is seen. OTHER: Coils from ventral wall hernia repair surgery anterior abdominal wall of the lower abdomen int o the pelvis are redemonstrated. IMPRESSION: Diffuse colonic diverticulosis without CT evidence for acute diverticulitis. No bowel obs truction. No significant new or acute findings when correlating with most recent CT.
--- NOTE | 2022-10-08 11:35 | US ---
EXAMINATION TYPE: US scrotum with doppler. Grayscale and color Doppler Duplex imaging performed of t neri scrotum. DATE OF EXAM: 10/08/2022 COMPARISON: NONE CLINICAL HISTORY: left pain. Pain left EXAM MEASUREMENTS: TESTICLES: Right Testicle: 5.3 x 2.8 x 4.1 cm Left Testicle: 4.9 x 3.3 x 3.6 cm EPIDIDYMIS HEAD: Right Epididymis: 1.0 x 1.3 cm Left Epididymis: 1.7 x 1.6 x 2.4 cm Complex cystic area seen 1.8 x .5 x 1.8 cm. Doppler performed to assess for testicular vascularity; good bilateral color flow and waveforms are s een. There is no evidence of testicular torsion. Presence of hydroceles: no Presence of varicoceles: no IMPRESSION: 1. There is a complex 1.8 cm cystic area within the left duct couldn't represent a complex epididymal head cyst. Correlate for infectious etiology. Urology consultation recommended.
[2022-10-08] MEDS ORDERED: SODIUM CHLORIDE 0.9% 500 ML 500 ML IV ONE (11:49)
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
[2022-10-08 13:42] LABS: Appearance,Urine Clear (Clear); Bilirubin,Urine Negative (Negative); Blood,Urine Negative (Negative); Color,Urine Yellow; Glucose,Urine (UA) Negative (Negative); Ketones,Urine Negative (Negative); Leukocyte Esterase,Urine Negative (Negative); Nitrite,Urine Negative (Negative); PH, Urine 5.5 (5.0-8.0); Protein,Urine Trace (Negative); Specific Gravity,Urine 1.027 (1.001-1.035); Urobilinogen,Urine <2.0 mg/dL (<2.0)
[2022-10-08] MEDS ORDERED: cefTRIAXone IN SWFI 1,000 MG/10 ML SYRINGE IVP STA (14:02)
[2022-10-08 14:26] VITALS: BP 140/78; PULSE 78; RESP 18; TEMP 98.1
== END 2022-10-08 14:26 | disposition home or self-care (01) ==
LOC: EC 09:01
DX: N45.1 Epididymitis (principal); I10 Essential (primary) hypertension; Z87.891 Personal history of nicotine dependence; F12.90 Cannabis use, unspecified, uncomplicated; Z88.0 Allergy status to penicillin
CPT/HCPCS: 36415; 80053; 82150; 83605; 83690; 85025; 81003; 93975; 76870; 74177; 99284; 96374; 96375 ×3; 96376; 96361; J2405; J0696; J1885; J1170; Q9967

== ENCOUNTER 2022-12-25 07:52 | Emergency (ER) | payer OTHER ==
[2022-12-25 08:05] VITALS: RESP 18; TEMP 98.6
[2022-12-25] MEDS ORDERED: ACET/COD 300 MG/30 MG STARTER PACK 6 TAB BTL PO STA (09:57)
[2022-12-25] MEDS ORDERED: HYDROmorphone 1 MG/ML 1 ML SYRINGE IM STA (09:57)
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
[2022-12-25 10:43] VITALS: BP 135/78; PULSE 100
== END 2022-12-25 10:25 | disposition home or self-care (01) ==
LOC: EC 07:52
DX: L02.214 Cutaneous abscess of groin (principal); I10 Essential (primary) hypertension; G47.30 Sleep apnea, unspecified; F12.90 Cannabis use, unspecified, uncomplicated; Z87.891 Personal history of nicotine dependence; Z79.899 Other long term (current) drug therapy; Z88.0 Allergy status to penicillin
CPT/HCPCS: 87070; 87205; 99283; 96372; 10060; J1170

== ENCOUNTER 2022-12-27 16:50 | Emergency (ER) | payer OTHER ==
[2022-12-27] MEDS ORDERED: MORPHINE SULFATE 2 MG/ML SYRINGE IVP STA (17:09)
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
[2022-12-27] MEDS ORDERED: KETOROLAC 15 MG/ML 1 ML VIAL IVP STA (17:34)
[2022-12-27 17:46] LABS: Basophils % (A) 0 %; Eosinophils # (A) 0.2 k/uL (0-0.7); Eosinophils % (A) 2 %; HGB 13.8 gm/dL (13.0-17.5); Lymphocytes # (A) 2.1 k/uL (1.0-4.8); Lymphocytes % (A) 21 %; MCH 30.8 pg (25.0-35.0); MCHC 33.7 g/dL (31.0-37.0); MCV 91.6 fL (80.0-100.0); Mean Platelet Volume 8.8; Monocytes # (A) 0.4 k/uL (0-1.0); Monocytes % (A) 4 %; Neutrophils # (A) 7.2 k/uL (1.3-7.7); Neutrophils % (A) 72 %; Platelet Count 210 k/uL (150-450); RBC 4.48 m/uL (4.30-5.90); RDW 14.3 % (11.5-15.5); WBC 10.1 k/uL (3.8-10.6)
[2022-12-27 17:58] LABS: ALT 68 U/L (4-49); AST 55 U/L (17-59); African American GFR (CKD) >90 (>60 ml/min/1.73 sqM); Albumin 3.9 g/dL (3.5-5.0); Alkaline Phosphatase 101 U/L (38-126); Anion Gap 8 mmol/L; Blood Urea Nitrogen 11 mg/dL (9-20); C Reactive Protein 4.4 mg/dL (<1.0); Calcium 8.7 mg/dL (8.4-10.2); Carbon Dioxide 28 mmol/L (22-30); Chloride 97 mmol/L (98-107); Glucose 359 mg/dL (74-99); Non-African American GFR(CKD) >90 (>60 ml/min/1.73 sqM); Potassium 4.2 mmol/L (3.5-5.1); Sodium 133 mmol/L (137-145); Total Bilirubin 0.4 mg/dL (0.2-1.3); Total Protein 7.8 g/dL (6.3-8.2)
[2022-12-27] MEDS ORDERED: VANCOMYCIN IV PER PHARMACY 1 EACH MISC MISCELLANE PRN (18:04)
[2022-12-27] MEDS ORDERED: CEFEPIME 2 GM in SODIUM CHLORIDE 0.9% 100 ML IVPB ONE (18:30)
[2022-12-27] MEDS ORDERED: VANCOMYCIN 2,500 MG in SODIUM CHLORIDE 0.9% 500 ML 500 ML IVPB ONE (19:00)
[2022-12-27 20:17] VITALS: TEMP 98.9
--- NOTE | 2022-12-27 20:45 | CT ---
EXAMINATION TYPE: CT pelvis w con CT DLP: 3552.9 mGycm, Automated exposure control for dose reduction was used. DATE OF EXAM: 12/27/2022 7:24 PM COMPARISON: CT abdomen pelvis 10/08/2022, ultrasound 10/08/2022 CLINICAL INDICATION:Male, 37 years old with history of Abscess in groin and pelvis; inguinal/ pelvic abscess TECHNIQUE: Axial CT of the abdomen and pelvis. Sagittal and coronal reformats were created on a rankur workstation. Contrast used:100 mL of Isovue 300 with IV Contrast, Oral contrast used: without Oral Contrast FINDINGS: LOWER CHEST: Not visualized due to field of view. ABDOMEN LIVER: Diffuse hypoattenuation, hepatic steatosis. GALLBLADDER AND BILE DUCTS: Unremarkable. PANCREAS: Unremarkable. SPLEEN: Unremarkable. ADRENAL GLANDS: Unremarkable. KIDNEYS AND URETERS: No evidence of hydronephrosis or renal calculus. The ureters are unremarkable. PELVIS BLADDER: Unremarkable REPRODUCTIVE: Unremarkable. ABDOMEN & PELVIS STOMACH AND BOWEL: Stomach and duodenum are unremarkable. Scattered diverticula are noted throughout the colon. No evidence of bowel obstruction. PERITONEUM: No evidence of pneumoperitoneum or free fluid. VASCULATURE: No evidence of aortic aneurysm. MUSCULOSKELETAL: No acute osseous abnormalities LYMPH NODES: Scattered prominent to large bilateral inguinal adenopathy, right greater than left. SOFT TISSUE/ABDOMINAL WALL: Diffuse subcutaneous fat stranding and epidermal thickening within the ri ght inguinal fold/groin (series 201, image 82 and series 202, image 67). No evidence for wall fluid c ollection to suggest abscess formation. No subcutaneous emphysema. Postsurgical changes from prior ve ntral hernia repair. Bilateral containing inguinal hernias. IMPRESSION: 1. Right inguinal/groin cellulitis without evidence for abscess or subcutaneous emphysema. 2. Bilateral inguinal adenopathy, likely reactive to #1. 3. Colonic diverticulosis and other incidental findings as detailed above.
[2022-12-27] MEDS ORDERED: ACET/COD 300 MG/30 MG STARTER PACK 6 TAB BTL PO STA (20:52)
[2022-12-27 22:10] VITALS: BP 136/86
[2022-12-27 22:28] VITALS: PULSE 86; RESP 20
[2022-12-28] MEDS ORDERED: CEFEPIME 2 GM in SODIUM CHLORIDE 0.9% 100 ML IVPB SCH ×2
[2022-12-28] MEDS ORDERED: VANCOMYCIN 2,500 MG in SODIUM CHLORIDE 0.9% 500 ML 500 ML IVPB SCH (04:00)
== END 2022-12-27 22:29 | disposition home or self-care (01) ==
LOC: EC 16:50
DX: L03.314 Cellulitis of groin (principal); I10 Essential (primary) hypertension; G47.30 Sleep apnea, unspecified; F12.90 Cannabis use, unspecified, uncomplicated; Z87.891 Personal history of nicotine dependence; Z79.899 Other long term (current) drug therapy; Z88.0 Allergy status to penicillin
CPT/HCPCS: 36415; 80053; 83605; 85025; 86140; 87040; 87070; 87205; 72193; 99284; 96365; 96375 ×2; 96367; 96366 ×3; J3370; J0692; J2270; J1885; Q9967

== ENCOUNTER 2023-01-12 03:23 | Observation (INO) | payer BC, OTHER ==
[2023-01-12] MEDS ORDERED: MORPHINE SULFATE 4 MG/ML SYRINGE IVP STA ×2 (03:52→05:53)
[2023-01-12] MEDS ORDERED: VANCOMYCIN 2,000 MG in SODIUM CHLORIDE 0.9% 500 ML 500 ML IVPB STA (03:52)
[2023-01-12] MEDS ORDERED: VANCOMYCIN IV PER PHARMACY 1 EACH MISC MISCELLANE PRN (03:56)
[2023-01-12] MEDS ORDERED: LIDOCAINE 1% INJ 10MG/ML (10 ML MDV) SQ STA (04:22)
[2023-01-12 04:35] LABS: Basophils % (A) 0 %; Eosinophils # (A) 0.1 k/uL (0-0.7); Eosinophils % (A) 2 %; HCT 38.4 % (39.0-53.0); HGB 12.7 gm/dL (13.0-17.5); Lymphocytes # (A) 2.1 k/uL (1.0-4.8); Lymphocytes % (A) 26 %; MCH 30.3 pg (25.0-35.0); MCHC 33.1 g/dL (31.0-37.0); MCV 91.5 fL (80.0-100.0); Mean Platelet Volume 8.3; Monocytes # (A) 0.4 k/uL (0-1.0); Monocytes % (A) 5 %; Neutrophils # (A) 5.3 k/uL (1.3-7.7); Neutrophils % (A) 66 %; Platelet Count 226 k/uL (150-450); RDW 13.7 % (11.5-15.5)
[2023-01-12 04:47] LABS: Chloride 100 mmol/L (98-107)
[2023-01-12 04:48] LABS: ALT 64 U/L (4-49); AST 67 U/L (17-59); African American GFR (CKD) >90 (>60 ml/min/1.73 sqM); Albumin 3.9 g/dL (3.5-5.0); Alkaline Phosphatase 87 U/L (38-126); Anion Gap 8 mmol/L; Blood Urea Nitrogen 16 mg/dL (9-20); Calcium 8.7 mg/dL (8.4-10.2); Carbon Dioxide 25 mmol/L (22-30); Glucose 347 mg/dL (74-99); Lipase 97 U/L (23-300); Magnesium 1.6 mg/dL (1.6-2.3); Non-African American GFR(CKD) >90 (>60 ml/min/1.73 sqM); Sodium 133 mmol/L (137-145); Total Bilirubin 0.8 mg/dL (0.2-1.3); Total Protein 8.1 g/dL (6.3-8.2)
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
[2023-01-12 05:24] LABS: Potassium 4.6 mmol/L (3.5-5.1)
[2023-01-12] MEDS ORDERED: MORPHINE SULFATE 4 MG/ML SYRINGE IV PRN (06:19)
[2023-01-12] MEDS ORDERED: NALOXONE 0.4 MG/ML 1 ML VIAL IV PRN (06:19)
[2023-01-12 06:49] LABS: Glucose,Whole Blood 377 mg/dL (70-110)
[2023-01-12] MEDS: INSULIN ASPART (NovoLOG) 100 UNIT/ML VIAL SQ SCH ×5 (07:18→21:31)
--- NOTE | 2023-01-12 07:39 | CT ---
EXAMINATION TYPE: CT abdomen pelvis w con CT DLP: 4242.8 mGycm, Automated exposure control for dose reduction was used. DATE OF EXAM: 01/12/2023 7:21 AM COMPARISON: CT abdomen pelvis most recent from CLINICAL INDICATION:Male, 37 years old with history of Recurrent groin abscess with air; GROIN ABSCES S TECHNIQUE: Axial CT of the abdomen and pelvis. Sagittal and coronal reformats were created on a [employer] workstation. Contrast used:100 mL of Isovue 300 with IV Contrast, Oral contrast used: without Oral Contrast FINDINGS: LOWER CHEST: Unremarkable ABDOMEN LIVER: Diffusely hypoattenuating parenchyma. GALLBLADDER AND BILE DUCTS: Unremarkable. PANCREAS: Unremarkable. SPLEEN: Unremarkable. ADRENAL GLANDS: Unremarkable. KIDNEYS AND URETERS: No evidence of hydronephrosis or renal calculus. The ureters are unremarkable. PELVIS BLADDER: Unremarkable REPRODUCTIVE: Unremarkable. ABDOMEN & PELVIS STOMACH AND BOWEL: No evidence of bowel obstruction. PERITONEUM/RETROPERITONEUM: No evidence of pneumoperitoneum or free fluid. VASCULATURE: No evidence of aortic aneurysm. MUSCULOSKELETAL: No acute osseous abnormalities LYMPH NODES: No gross evidence for lymphadenopathy. SOFT TISSUE/ABDOMINAL WALL: Focus of gas within the right inguinal region just lateral to the inguina l canal. Fluid collection within this region is difficult to measure but felt to measure approximatel y 3.4 x 1.5 x 1.6 cm. Surrounding phlegmonous change noted. IMPRESSION 1. Right inguinal abscess which is difficult to measure size on CT imaging, ultrasound imaging would be more accurate for size assessment. 2. No evidence for acute intra-abdominal process. 3. Scattered colonic diverticula. 4. Hepatic steatosis
[2023-01-12 08:19] LABS: Glucose,Whole Blood 314 mg/dL (70-110)
[2023-01-12] MEDS: lisinopriL 10 MG TAB PO SCH (08:19)
[2023-01-12] MEDS: ATORVASTATIN 10 MG TAB PO SCH (08:19)
[2023-01-12] MEDS: metFORMIN 500 MG TAB PO SCH ×2 (08:19→22:15)
[2023-01-12 12:21] LABS: Glucose,Whole Blood 266 mg/dL (70-110)
[2023-01-12] MEDS: metroNIDAZOLE-NS PMX 500 MG in SALINE 1 100ML.BAG IVPB SCH ×2 (12:29→19:33)
[2023-01-12] MEDS: VANCOMYCIN 2,000 MG in SODIUM CHLORIDE 0.9% 500 ML 500 ML IVPB SCH ×2 (13:48→22:15)
[2023-01-12 17:25] LABS: Glucose,Whole Blood 234 mg/dL (70-110)
[2023-01-12 19:40] LABS: Glucose,Whole Blood 247 mg/dL (70-110)
[2023-01-12] MEDS ORDERED: INSULIN DETEMIR (LEVEMIR) 100 UNIT/ML SYR SQ SCH (21:00)
[2023-01-12 21:19] LABS: Glucose,Whole Blood 182 mg/dL (70-110)
[2023-01-13] MEDS: VANCOMYCIN 2,000 MG in SODIUM CHLORIDE 0.9% 500 ML 500 ML IVPB SCH ×2 (04:08→14:33)
[2023-01-13] MEDS: metroNIDAZOLE-NS PMX 500 MG in SALINE 1 100ML.BAG IVPB SCH ×3 (04:08→18:04)
[2023-01-13 05:31] LABS: African American GFR (CKD) >90 (>60 ml/min/1.73 sqM); Non-African American GFR(CKD) >90 (>60 ml/min/1.73 sqM)
[2023-01-13 07:24] LABS: Glucose,Whole Blood 195 mg/dL (70-110)
[2023-01-13] MEDS: INSULIN ASPART (NovoLOG) 100 UNIT/ML VIAL SQ SCH ×7 (08:09→20:38)
[2023-01-13] MEDS: lisinopriL 10 MG TAB PO SCH (08:09)
[2023-01-13] MEDS: ATORVASTATIN 10 MG TAB PO SCH (08:09)
[2023-01-13] MEDS: metFORMIN 500 MG TAB PO SCH ×2 (08:09→20:38)
--- NOTE | 2023-01-13 08:59 | HP ---
HISTORY AND PHYSICAL CHIEF COMPLAINT: Abscess in the right groin. HISTORY OF PRESENT ILLNESS: This is another admission for this 37-year-old obese white male. He has presented himself to the emergency room on 2 or 3 different occasions for abscess in the right groin. It was getting worse, so he came in and it was opened and drained for considerable amount of purulent drainage. He was found to be diabetic as well. He has had no fever, or chills. REVIEW OF SYSTEMS: Other than some discomfort, he has had no other symptoms. He has had no chills or fever. PHYSICAL EXAMINATION: VITAL SIGNS: Blood pressure is 132/74 with a pulse of 90, respirations of 36. He had a temperature 99. GENERAL: He appeared to be obese. HEAD, EARS, EYES, NOSE, MOUTH AND THROAT: Normal. CHEST: Clear. CARDIAC: Normal. ABDOMEN: Protuberant, soft and nontender. He did have a draining abscess in the right groin. EXTREMITIES: Normal. NEUROLOGICAL: He is intact. ASSESSMENT: He is admitted to the hospital with diagnoses of: 1. Abscess, right groin. 2. Type 2 diabetes. 3. Obesity. PLAN: 1. Bed rest. 2. IV fluids. 3. IV antibiotics. 4. Manage blood sugar. MMODL / IJN: [id number] /
[2023-01-13 12:17] LABS: Glucose,Whole Blood 150 mg/dL (70-110)
[2023-01-13 14:19] VITALS: BMI 47.3
[2023-01-13 17:25] LABS: Glucose,Whole Blood 180 mg/dL (70-110)
[2023-01-13] MEDS ORDERED: VANCOMYCIN TROUGH DUE 1 EACH MISC MISCELLANE ONE (19:00)
[2023-01-13 20:11] LABS: Glucose,Whole Blood 185 mg/dL (70-110)
[2023-01-13] MEDS: CLOTRIMAZOLE 1% CREAM 30 GM TUBE TOPICAL SCH (20:38)
[2023-01-13] MEDS ORDERED: INSULIN DETEMIR (LEVEMIR) 100 UNIT/ML SYR SQ SCH (21:00)
[2023-01-13] MEDS: VANCOMYCIN 1,750 MG in SODIUM CHLORIDE 0.9% 500 ML 500 ML IVPB SCH (23:43)
[2023-01-14] MEDS: metroNIDAZOLE-NS PMX 500 MG in SALINE 1 100ML.BAG IVPB SCH ×2 (03:38→10:57)
[2023-01-14 06:58] LABS: Glucose,Whole Blood 150 mg/dL (70-110)
[2023-01-14] MEDS: INSULIN ASPART (NovoLOG) 100 UNIT/ML VIAL SQ SCH ×4 (07:23→12:41)
[2023-01-14 07:32] VITALS: RESP 18
[2023-01-14 08:16] LABS: African American GFR (CKD) >90 (>60 ml/min/1.73 sqM); Non-African American GFR(CKD) >90 (>60 ml/min/1.73 sqM)
[2023-01-14] MEDS: ATORVASTATIN 10 MG TAB PO SCH (08:54)
[2023-01-14] MEDS: metFORMIN 500 MG TAB PO SCH (08:54)
[2023-01-14] MEDS: CLOTRIMAZOLE 1% CREAM 30 GM TUBE TOPICAL SCH (08:54)
[2023-01-14] MEDS: lisinopriL 10 MG TAB PO SCH (08:54)
[2023-01-14] MEDS: VANCOMYCIN 1,750 MG in SODIUM CHLORIDE 0.9% 500 ML 500 ML IVPB SCH (09:04)
[2023-01-14 11:09] LABS: Glucose,Whole Blood 158 mg/dL (70-110)
[2023-01-14 12:25] VITALS: BP 132/87; PULSE 86; TEMP 97.5
[2023-01-14] MEDS ORDERED: CEPHALEXIN 500 MG CAP PO SCH (13:00)
[2023-01-14] MEDS ORDERED: metroNIDAZOLE 500 MG TAB PO SCH (16:00)
--- NOTE | 2023-01-14 22:14 | PN ---
PROGRESS NOTE DATE OF SERVICE: 01/13/2023 CHIEF COMPLAINT: Abscess in the right groin and new onset diabetes. HISTORY OF PRESENT ILLNESS: This gentleman is doing well. He has not had any significant pain, fever, chills, shortness of breath, etc. Blood sugars are still high, but improving. PHYSICAL EXAMINATION: CHEST: Clear. CARDIAC: Normal. ABDOMEN: Protuberant, soft and nontender. The abscess is not draining a great deal at this time. IMPRESSION: 1. Right groin abscess. 2. Newly diagnosed uncontrolled diabetes. 3. Obesity. PLAN: Increase Levemir, increase activity and probably home in the next day or two. MMODL / IJN: [id number] /
--- NOTE | 2023-01-14 22:36 | DS ---
DISCHARGE SUMMARY CHIEF COMPLAINT: Abscess in the right groin and elevated blood sugar. HISTORY OF PRESENT ILLNESS AND PHYSICAL EXAM: Details of this man's history and physical can be found in the initial workup. LABORATORY STUDIES: While he was in the hospital, he had laboratory studies, details of which can be found in the laboratory section of his chart. COURSE IN THE HOSPITAL: After admission, he was placed on bedrest and the abscess was opened. He was continued on IV antibiotics while in the hospital. His blood sugars were being managed with basal bolus insulin program. While in the hospital, it was noted that he had extensive tinea pedis involving both feet and treatment was initiated. He was doing well. It was felt that he could go home on the and he will go home on oral antibiotics and long-acting insulin. He will be seen in the office in a day or 2. At that time, his diabetic management will become more focused along with diabetic education and he will also be placed on ketoconazole cream twice a day for feet. FINAL DIAGNOSES: 1. Right groin abscess. 2. Newly diagnosed uncontrolled diabetes mellitus. 3. Tinea pedis. OPERATIONS: Incision and drainage. CONSULTATIONS: None. He is improved. MMODL / IJN: [id number] /
[2023-01-15] MEDS ORDERED: VANCOMYCIN TROUGH DUE 1 EACH MISC MISCELLANE ONE (07:00)
== END 2023-01-14 15:06 | disposition home or self-care (01) ==
LOC: SUPCPDRO 03:23 → EC 03:23 → 5NMEDONC 06:19 → INTOOBSV 06:19 → 5NMEDONC 19:21 → UNDODISIN 01-14 15:06
PROVIDERS: ADMIT Family Medicine; ATTEND Family Medicine
DX: L02.214 Cutaneous abscess of groin (principal); E11.65 Type 2 diabetes mellitus with hyperglycemia; I10 Essential (primary) hypertension; B35.3 Tinea pedis; L40.9 Psoriasis, unspecified; F12.90 Cannabis use, unspecified, uncomplicated; K57.30 Diverticulosis of large intestine without perforation or abscess without bleeding; K76.0 Fatty (change of) liver, not elsewhere classified; E66.9 Obesity, unspecified; Z79.84 Long term (current) use of oral hypoglycemic drugs; Z79.899 Other long term (current) drug therapy; Z88.0 Allergy status to penicillin; Z87.891 Personal history of nicotine dependence; Z82.49 Family history of ischemic heart disease and other diseases of the circulatory system; Z68.42 Body mass index [BMI] 45.0-49.9, adult
CPT/HCPCS: 96366 ×5; 96376; 96365 ×2; 96375; 99285; 36415; 80053; 82565 ×2; 83690; 83735; 85025; 80202; 87070; 87205; 87075; 83036; 74177; G0378 ×3; J3370 ×3; J2270; J0690 ×3; J2001; Q9967; 10060; 96367

== ENCOUNTER → 2023-06-17 | Outpatient (CLI) | payer BC, OTHER ==
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
== END ==
LOC: 3 N SLEEP 15:47
PROVIDERS: ATTEND Internal Medicine
DX: G47.33 Obstructive sleep apnea (adult) (pediatric) (principal); E66.9 Obesity, unspecified; I10 Essential (primary) hypertension; E11.9 Type 2 diabetes mellitus without complications; E78.5 Hyperlipidemia, unspecified; K76.0 Fatty (change of) liver, not elsewhere classified; Z68.42 Body mass index [BMI] 45.0-49.9, adult; Z98.890 Other specified postprocedural states; Z90.89 Acquired absence of other organs; Z79.899 Other long term (current) drug therapy; Z79.84 Long term (current) use of oral hypoglycemic drugs; Z79.4 Long term (current) use of insulin; Z88.0 Allergy status to penicillin; Z88.8 Allergy status to other drugs, medicaments and biological substances; Z87.891 Personal history of nicotine dependence
CPT/HCPCS: 99211

== ENCOUNTER 2023-09-07 08:11 | Emergency (ER) | payer BC, OTHER ==
[2023-09-07] MEDS ORDERED: HYDROcodone/APAP 5-325MG 1 EACH TAB PO STA (08:19)
[2023-09-07] MEDS ORDERED: CLINDAMYCIN 150 MG CAP PO STA (08:19)
[2023-09-07] MEDS ORDERED: ACET/COD 300 MG/30 MG STARTER PACK 6 TAB BTL PO STA (08:19)
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
[2023-09-07 08:33] VITALS: BP 141/83; PULSE 107; RESP 18; TEMP 97.7
== END 2023-09-07 08:36 | disposition home or self-care (01) ==
LOC: EC 08:11
DX: L02.214 Cutaneous abscess of groin (principal); I10 Essential (primary) hypertension; G47.30 Sleep apnea, unspecified; F17.290 Nicotine dependence, other tobacco product, uncomplicated; F12.90 Cannabis use, unspecified, uncomplicated; Z79.899 Other long term (current) drug therapy; Z88.0 Allergy status to penicillin; Z88.8 Allergy status to other drugs, medicaments and biological substances
CPT/HCPCS: 99282

== ENCOUNTER 2023-09-22 23:57 | Emergency (ER) | payer BC, OTHER ==
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
[2023-09-23 00:34] VITALS: RESP 18; TEMP 98
--- NOTE | 2023-09-23 00:57 | XR ---
EXAM: XR Right Shoulder Complete, 2 or More Views CLINICAL HISTORY: ITS.REASON XR Reason: pain TECHNIQUE: Two or more views of the right shoulder. COMPARISON: No relevant prior studies available. FINDINGS: Bones/joints: Unremarkable. No fracture or dislocation. Soft tissues: Unremarkable. IMPRESSION: Normal right shoulder x-rays.
--- NOTE | 2023-09-23 01:03 | XR ---
EXAM: XR Cervical Spine, 2 or 3 Views CLINICAL HISTORY: ITS.REASON XR Reason: pain TECHNIQUE: Frontal and lateral views of the cervical spine. COMPARISON: No relevant prior studies available. FINDINGS: Vertebrae: Unremarkable. No definite fracture. Normal alignment. Disc spaces: No acute findings. Mild disc space narrowing at C5-6. Soft tissues: Unremarkable. IMPRESSION: No acute findings in the cervical spine. No foraminal stenosis.
[2023-09-23] MEDS ORDERED: ORPHENADRINE 30 MG/ML 2 ML VIAL IM STA (02:55)
[2023-09-23] MEDS ORDERED: DEXAMETHASONE SOD PHOSPHATE 10 MG/ML 1 ML VIAL IM STA (02:55)
[2023-09-23] MEDS ORDERED: KETOROLAC 15 MG/ML 1 ML VIAL IM STA (02:55)
[2023-09-23] MEDS ORDERED: traMADol 50 MG STARTER PACK 3 TAB BTL PO STA (04:06)
[2023-09-23] MEDS ORDERED: HYDROmorphone 1 MG/ML 1 ML SYRINGE IM STA (04:06)
[2023-09-23] MEDS ORDERED: IBUPROFEN 600 MG STARTER PACK 4 TAB BTL PO STA (04:06)
[2023-09-23 04:32] VITALS: BP 119/72; PULSE 83
== END 2023-09-23 04:22 | disposition home or self-care (01) ==
LOC: EC 23:57
DX: M54.12 Radiculopathy, cervical region (principal); I10 Essential (primary) hypertension; G47.30 Sleep apnea, unspecified; Z87.891 Personal history of nicotine dependence; Z79.899 Other long term (current) drug therapy; Z88.0 Allergy status to penicillin; Z88.8 Allergy status to other drugs, medicaments and biological substances
CPT/HCPCS: 72050; 73030; 99283; 96372 ×4; J1100; J2360; J1170; J1885

== ENCOUNTER → 2024-01-07 | Outpatient (CLI) | payer BC, OTHER ==
--- NOTE | 2024-01-07 09:55 | US ---
EXAMINATION TYPE: US abdomen complete DATE OF EXAM: 01/07/2024 COMPARISON: NONE CLINICAL INDICATION: Male, 38 years old with history of R10.33 UNBILICAL PAIN; Patient is worried abo ut umbilical hernia mesh insert and screws, ?recalled material TECHNIQUE: Multiple sonographic images of the abdomen are obtained. FINDINGS: EXAM MEASUREMENTS: Liver Length: 23.2 cm Gallbladder Wall: 0.2 cm CBD: 0.2 cm Spleen: 13.7 cm Right Kidney: 14.7 x 6.4 x 7.1 cm Left Kidney: 13.1 x 6.0 x 5.8 cm OIL WELL LOGGING ENGINEER NOTES: Pancreas: Tail obscured by overlying bowel gas Liver: Increased attenuation, decreased visualization of vessels suggestive of fatty infiltrate Gallbladder: wnl Evidence for sonographic Cornell's sign: No CBD: wnl Spleen: wnl Right Kidney: wnl Left Kidney: wnl Upper IVC: wnl Abd Aorta: wnl Patients AOC scanned, no abnormalities noted. The liver is homogenous. aorta are within normal limits. There is no evidence of cholelithiasis. C ommon bile duct is unremarkable. The visualized portions of the pancreas are homogenous. The spleen is unremarkable. Kidneys are symmetric and free of hydronephrosis. No renal lesions are seen. IMPRESSION: Hepatic steatosis.
== END | disposition home or self-care (01) ==
LOC: RADUSWWP 09:03
PROVIDERS: ATTEND Family Medicine
DX: K76.0 Fatty (change of) liver, not elsewhere classified (principal); R10.33 Periumbilical pain
CPT/HCPCS: 76700

== ENCOUNTER 2024-07-12 07:51 | Emergency (ER) | payer BC, OTHER ==
[2024-07-12] MEDS: diphenhydrAMINE 50 MG/ML 1 ML VIAL IVP STA (09:03)
[2024-07-12] MEDS: METOCLOPRAMIDE 5 MG/ML 2 ML VIAL IVP STA (09:05)
[2024-07-12] MEDS: HYDROmorphone 0.5 MG/0.5 ML SYRINGE IVP STA ×2 (09:08→10:47)
[2024-07-12] MEDS: SODIUM CHLORIDE 0.9% 1,000 ML IV STA (09:11)
[2024-07-12] MEDS: SODIUM CHLORIDE 0.9% 500 ML 500 ML IV STA (09:12)
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
[2024-07-12 09:50] LABS: ALT 34 U/L (4-49); AST 32 U/L (17-59); African American GFR (CKD) >90 (>60 ml/min/1.73 sqM); Albumin 4.3 g/dL (3.5-5.0); Alkaline Phosphatase 88 U/L (38-126); Anion Gap 12 mmol/L; Blood Urea Nitrogen 13 mg/dL (9-20); Calcium 9.4 mg/dL (8.4-10.2); Carbon Dioxide 25 mmol/L (22-30); Chloride 98 mmol/L (98-107); Glucose 193 mg/dL (74-99); Lipase 40 U/L (23-300); Non-African American GFR(CKD) >90 (>60 ml/min/1.73 sqM); Potassium 4.1 mmol/L (3.5-5.1); Sodium 135 mmol/L (137-145); Total Bilirubin 0.7 mg/dL (0.2-1.3); Total Protein 7.8 g/dL (6.3-8.2)
[2024-07-12 09:52] LABS: Basophils % (A) 0 %; Eosinophils # (A) 0.1 k/uL (0-0.7); Eosinophils % (A) 1 %; HCT 47.7 % (39.0-53.0); HGB 15.5 gm/dL (13.0-17.5); Lymphocytes # (A) 1.7 k/uL (1.0-4.8); Lymphocytes % (A) 19 %; MCH 29.1 pg (25.0-35.0); MCHC 32.5 g/dL (31.0-37.0); MCV 89.6 fL (80.0-100.0); Monocytes # (A) 0.6 k/uL (0-1.0); Monocytes % (A) 7 %; Neutrophils # (A) 6.3 k/uL (1.3-7.7); Neutrophils % (A) 71 %; Platelet Count 280 k/uL (150-450); RBC 5.33 m/uL (4.30-5.90); RDW 14.5 % (11.5-15.5); WBC 8.9 k/uL (3.8-10.6)
[2024-07-12] MEDS: KETOROLAC 15 MG/ML 1 ML VIAL IVP STA (10:44)
--- NOTE | 2024-07-12 10:55 | CT ---
EXAMINATION TYPE: CT abdomen pelvis w con CT DLP: 3248 mGycm, Automated exposure control for dose reduction was used. DATE OF EXAM: 07/12/2024 10:29 AM COMPARISON: CT abdomen pelvis 01/12/2023, 10/08/2022 CLINICAL INDICATION:Male, 39 years old with history of abdominal pain; Abdominal pain x 6 days. TECHNIQUE: Standard CT of the abdomen and pelvis following the administration of 100 cc of Isovue 3 00 IV contrast material. Coronal and sagittal reformats were performed. FINDINGS: LOWER CHEST: Unremarkable ABDOMEN LIVER: Enlarged measuring 22.3 cm in CC dimension. Diffusely hypoattenuating without focal lesion farzaneh ntified. GALLBLADDER AND BILE DUCTS: Unremarkable. PANCREAS: Unremarkable. SPLEEN: Unremarkable. ADRENAL GLANDS: Unremarkable. KIDNEYS AND URETERS: No evidence of hydronephrosis or renal calculus. The kidneys enhance symmetrical ly. Contrast is demonstrated within both collecting systems on the delayed phase. PELVIS BLADDER: Unremarkable REPRODUCTIVE: Unremarkable. ABDOMEN & PELVIS STOMACH AND BOWEL: Stomach and duodenum are unremarkable. Pancolonic diverticulosis. Long segment wal l thickening with some fat stranding involving the ascending colon and transverse colon and proximal descending colon. Majority of the fat stranding as along the ascending colon. The appendix is within normal limits. No evidence of bowel obstruction. PERITONEUM: No evidence of pneumoperitoneum or free fluid. VASCULATURE: No evidence of aortic aneurysm. MUSCULOSKELETAL: No acute osseous abnormalities. Mild disc degeneration changes are present throughou t the thoracolumbar spine. LYMPH NODES: Similar mildly prominent external iliac chain lymph nodes. SOFT TISSUE/ABDOMINAL WALL: Post surgical changes of the anterior abdominal wall with mesh anchors id entified. IMPRESSION: 1. Acute colitis likely from an infectious/inflammatory etiology. 2. Colonic diverticulosis. 3. Hepatomegaly with hepatic steatosis. [facility], , 07/12/2024 10:53 AM
[2024-07-12 11:09] LABS: Appearance,Urine Clear (Clear); Bilirubin,Urine Negative (Negative); Blood,Urine Trace (Negative); Color,Urine Colorless; Glucose,Urine (UA) Negative (Negative); Hyaline Casts,Urine 3 /lpf (0-2); Ketones,Urine Negative (Negative); Leukocyte Esterase,Urine Negative (Negative); Mucus,Urine Rare /hpf; Nitrite,Urine Negative (Negative); Protein,Urine Trace (Negative); RBC,Urine <1 /hpf (0-5); Squamous Epithelial Cell,Urine <1 /hpf (0-4); Urobilinogen,Urine <2.0 mg/dL (<2.0); WBC,Urine 1 /hpf (0-5)
[2024-07-12 11:22] VITALS: BP 145/84; PULSE 67; RESP 18; TEMP 98.3
== END 2024-07-12 11:23 | disposition home or self-care (01) ==
LOC: EC 07:51
CPT/HCPCS: 36415; 74177; 80053; 81001; 83605; 83690; 85025; 96361; 96374; 96375; 96376; 99284